=== PATIENT | female | born 1940 | race Caucasian/White ===

== ENCOUNTER 2021-09-24 21:20 | Inpatient (IN) | payer MEDICARE, SELFPAY ==
[2021-09-24 21:21] VITALS: BP 132/69; PULSE 90; RESP 20; TEMP 36.9; O2SAT 82; BMI 24.7
[2021-09-24 21:42] LABS: Influenza A, PCR Not Detected (NotDetected); Influenza B, PCR Not Detected (NotDetected)
[2021-09-24 21:48] VITALS: BMI 30.9
--- NOTE | 2021-09-24 21:48 | XR_ITS ---
PROCEDURE INFORMATION: Exam: XR Chest Exam date and time: 09/24/2021 9:48 PM Age: 81 years old Clinical indication: Shortness of breath; Additional info: SOA, covid + 3 wk ago TECHNIQUE: Imaging protocol: XR of the chest. Views: 2 views. COMPARISON: No relevant prior studies available. FINDINGS: Lungs: Diffuse interstitial prominence/coarsening. Patchy opacities are seen throughout the periphery of both lungs. Pleural spaces: Small bilateral pleural effusions. No pneumothorax. Heart/Mediastinum: Heart size appears to be within normal limits. Aortic atherosclerosis. Calcified right hilar lymph nodes. Bones/joints: Osteopenia. Scattered degenerative changes including multilevel spondylosis. IMPRESSION: Abnormal appearance of the lungs compatible with recent atypical pneumonia due to COVID-19. Unclear if findings represent residual active pneumonia or post-pneumonic sequelae. Follow-up is recommended.
--- NOTE | 2021-09-24 21:48 | CT_ITS ---
PROCEDURE INFORMATION: Exam: CTA Chest With Contrast Exam date and time: 09/24/2021 9:48 PM Age: 81 years old Clinical indication: Shortness of breath; Additional info: tiffanie SPRINGER + 3 wk ago TECHNIQUE: Imaging protocol: Computed tomographic angiography of the chest with contrast. 3D rendering (Not supervised by radiologist): MIP and/or 3D reconstructed images were created by the technologist. Radiation optimization: All CT scans at this facility use at least one of these dose optimization techniques: automated exposure control; mA and/or kV adjustment per patient size (includes targeted exams where dose is matched to clinical indication); or iterative reconstruction. Contrast material: ISOVUE 370; Contrast volume: 70 ml; Contrast route: INTRAVENOUS (IV); COMPARISON: CR XR CHEST 2V 09/24/2021 9:49 PM FINDINGS: Pulmonary arteries: Normal. No pulmonary emboli. Aorta: Normal caliber of the thoracic aorta. No thoracic aortic dissection. Scattered atherosclerotic plaque. Lungs: There are patchy ground-glass opacities throughout both lungs, predominantly peripheral in location. There is diffuse bronchial wall thickening. Scattered calcified granulomas. Pleural spaces: Minimal right pleural effusion. No pneumothorax. Heart: Heart size upper limits of normal. No pericardial effusion. Moderate coronary calcification, not formally quantified. Possible coronary stent(s). Lymph nodes: Calcified lymph nodes compatible with old granulomatous disease. There are also scattered mildly enlarged lymph nodes in the prevascular and aortopulmonary window stations that are nonspecific, possibly reactive to the atypical pneumonia. Mediastinum: Large hiatal hernia with inverted intrathoracic stomach. Nonspecific distal esophageal wall thickening, which may represent esophagitis, but is not fully evaluated at CT. Upper abdomen: Calcified granulomas in the liver and spleen. Bones/joints: Osteopenia. Levoconvex curvature of the thoracolumbar junction. Multilevel spondylosis. Soft tissues: Unremarkable. IMPRESSION: 1. No evidence of pulmonary embolus. 2. Extensive ground-glass opacities throughout both lungs compatible with recent diagnosis of atypical pneumonia. Findings could represent persistent active disease or residual sequela of recent infection, depending upon the clinical context, and follow-up is advised. 3. Old granulomas disease. 4. Large hiatal hernia with possible distal esophagitis.
[2021-09-24 21:59] LABS: Basophils # 0.1 K/mm3 (0-0.2); Eosinophils % 0.2 % (0.1-12.0); Hematocrit 38.4 % (37.0-47.0); Hemoglobin 12.3 g/dL (12.2-16.2); Lymphocytes # 0.7 K/mm3 (0.7-4.5); Lymphocytes % 9.8 % (10-50); Mean Corpuscular HGB Conc 32.1 g/dL (31.8-35.4); Mean Corpuscular Hemoglobin 28.8 pg (27.0-31.2); Mean Corpuscular Volume 89.7 fl (81-99); Mean Platelet Volume 7.6 fl (7.4-10.4); Monocytes # 0.5 K/mm3 (0.1-1.0); Monocytes % 7.4 % (1.7-9.3); Neutrophils # 5.8 K/mm3 (1.8-7.8); Neutrophils % 81.5 % (37.0-80.0); Platelet Count 481 K/mm3 (142-424); Red Blood Count 4.27 M/mm3 (4.20-5.40); Red Cell Distribution Width 15.2 % (11.5-17.5); White Blood Count 7.1 K/mm3 (4.8-10.8)
[2021-09-24 22:04] LABS: Alanine Aminotransferase 28 U/L (12-78); Albumin Level 4.2 g/dl (3.5-5.0); Albumin/Globulin Ratio 1.1 (1.1-1.8); Alkaline Phosphatase 72 U/L (38-126); Amylase 80 U/L (30-110); Anion Gap 12.1 mEq/L (5-15); Aspartate Amino Transferase 57 U/L (14-36); Bilirubin,Total 0.7 mg/dl (0.2-1.3); Blood Urea Nitrogen 14 mg/dl (7-17); Calcium 8.9 mg/dl (8.4-10.2); Carbon Dioxide 30 mmol/L (22.0-30.0); Chloride 97 mmol/L (98-107); Creatinine Clearance Estimated 57 mL/min (50-200); Estimated Glomerular Filt Rate 60 ml/min (>60); GFR (African American) 73 ML/MIN (>60); Globulin 3.9 g/dL (1.3-3.2); Glucose 125 mg/dl (74-100); Lipase 141 U/L (23-300); Potassium 5.1 mmoL/L (3.5-5.1); Sodium 134 mmol/L (136-145); Total Protein,Serum 8.1 g/dl (6.3-8.2)
[2021-09-24 22:09] LABS: C-Reactive Protein 98.3 mg/L (0-4)
--- NOTE | 2021-09-24 22:13 | ECG_ITS ---
APPROVED REPORT Exam: Resting ECG HR:83 bpm ECG Measurements Heart Rate 83 AXES VT 120 P 47 QRSd 80 QRS 34 QT 372 T 15 QTc 437 Conclusion Normal sinus rhythm Normal ECG Electronically signed by : Jason Benitez MD 09/25/2021 19:55:42
[2021-09-24 22:19] LABS: NT Pro Brain Natriuretic Pep. 309 pg/mL (0-450)
[2021-09-24 22:23] LABS: Procalcitonin 0.059 ng/mL (0.0-2.0)
[2021-09-24 22:30] VITALS: BP 148/90; PULSE 83; O2SAT 94
[2021-09-24 22:36] LABS: ABG Base Excess -1.4 mmol/L (-2.4-2.3); ABG HCO3 22.5 mmhg (22.0-26.0); ABG Oxygen Saturation 91 % (90-100); ABG PCO2 32.7 mmhg (35.0-45.0); ABG PH 7.46 mmol/L (7.35-7.45); ABG PO2 61.6 mmhg (80-100); ABG TCO2 23.5 mmhg (23-27)
[2021-09-24 22:36] LABS: Erythrocyte Sedimentation Rate > 140 mm/hr (0-30)
[2021-09-24 22:37] LABS: Allen's Test Acceptable; Oxygen 21 %
[2021-09-24 22:37] LABS: Troponin I < 0.01 ng/ml (0.00-0.034)
[2021-09-24 22:38] LABS: Source Right Radial
[2021-09-24 22:55] LABS: Coronavirus 19, PCR Detected (NotDetected)
[2021-09-25] VITALS (10 sets, daily range): BP systolic 134–142; BP diastolic 57–74; PULSE 57–100; RESP 16–20; TEMP 36.4–36.9; O2SAT 90–95; BMI 31.0
--- NOTE | 2021-09-25 00:10 | HMH.EDWEAK ---
ED Disposition Clinical Impression: COVID-19 virus infection Respiratory failure with hypoxia Qualifiers: Chronicity: acute Qualified Code(s): J96.01 - Acute respiratory failure with hypoxia Disposition: Admitted As Inpatient Condition on Discharge: Fair Referrals: Provider,Referral, [Primary Care Provider] - - Critical Care Critical Care Time: No Attestation: On 09/24/21, the high probability of a clinically significant, sudden or life threatening deterioration of the following system(s) required my full and direct attention, intervention and personal management. The time I documented below is in addition to time spent performing reported procedures but includes the following listed in this critical care notation. Medical Decision Making - Medical Records Medical records reviewed: Yes: I reviewed the patient's medical records. - Manpreet Inquiry Pt receiving controlled substance: No Vital Signs: 09/24/21 21:21 09/24/21 22:30 Temperature 98.5 F Temperature Source Oral Pulse Rate 83 Pulse Rate [Right] 90 Respiratory Rate 20 Blood Pressure 148/90 H Blood Pressure [Right Arm] 132/69 Blood Pressure Mean 120 Blood Pressure Mean [Right Arm] 90 02 Sat by Pulse Oximetry 82 L 94 L Oxygen Delivery Method Room Air Nasal Cannula Oxygen Flow Rate (LPM) 3 - Lab Data Lab results reviewed: Yes: I reviewed the patient's lab results. Lab Results 09/24/21 21:29: SARS-CoV-2 (PCR) Detected A, Influenza A Untype (PCR) Not detected, Influenza Type B (PCR) Not detected 09/24/21 21:46: WBC 7.1, RBC 4.27, Hgb 12.3, Hct 38.4, MCV 89.7, MCH 28.8, MCHC 32.1, RDW 15.2, Plt Count 481 H, MPV 7.6, Neut % (Auto) 81.5 H, Lymph % (Auto) 9.8 L, [place] % (Auto) 7.4, Eos % (Auto) 0.2, Baso % (Auto) 1.0, Neut # (Auto) 5.8, Lymph # (Auto) 0.7, [place] # (Auto) 0.5, Eos # (Auto) 0.0, Baso # (Auto) 0.1, ESR > 140 H 09/24/21 21:46: Sodium 134 L, Potassium 5.1, Chloride 97 L, Carbon Dioxide 30, Anion Gap 12.1, BUN 14, Creatinine 0.90, Estimated Creat Clear 57, Estimated GFR 60, Est GFR ( Amer) 73, Glucose 125 H, Calcium 8.9, Total Bilirubin 0.7, AST 57 H, ALT 28, Alkaline Phosphatase 72, Troponin I < 0.01, C-Reactive Protein 98.3 H, NT-Pro-B Natriuret Pep 309, Total Protein 8.1, Albumin 4.2, Globulin 3.9 H, Albumin/Globulin Ratio 1.1, Amylase 80, Procalcitonin 0.059 09/24/21 21:46: Lipase 141 09/24/21 22:27: Specimen Source Right radial, O2 % 21, ABG pH 7.46 H, ABG pCO2 32.7 L, ABG pO2 61.6 L, ABG HCO3 22.5, ABG Total CO2 23.5, ABG O2 Saturation 91, ABG Base Excess -1.4, Jeferson Test Acceptable Result diagrams: 09/24/21 21:46 09/24/21 21:46 Orders (Tests/Meds): ED MEDICATIONS Generic Name Dose Route Start Last Admin Trade Name Freq PRN Reason Stop Dose Admin Sodium Chloride 1,000 mls @ 999 mls/hr 09/24/21 23:15 09/24/21 23:11 Sod Chlor 0.9% 1000ml Bag IV 09/25/21 00:15 999 mls/hr .Q1H1M YANDEL Administration Discontinued Medications Generic Name Dose Route Start Last Admin Trade Name Freq PRN Reason Stop Dose Admin Dexamethasone Sodium Phosphate 10 mg 09/24/21 23:04 09/24/21 23:11 Dexamethasone 4mg/Ml 5ml Mdv IV 09/24/21 23:05 10 mg ONCE ONE Administration Iopamidol 70 ml 09/24/21 22:40 09/24/21 22:41 Iopamidol-370 (76%);100ml Bottle IV 09/24/21 22:41 70 ml ONCE ONE Administration Ketorolac Tromethamine 30 mg 09/24/21 23:10 09/24/21 23:11 Ketorolac 30mg/Ml Vial IV 09/24/21 23:11 30 mg ONCE ONE Administration Sodium Chloride 50 ml 09/24/21 22:40 09/24/21 22:41 0.9 % Sodium Chloride 50 Ml Vial IV 09/24/21 22:41 50 ml ONCE ONE Administration Sodium Chloride 10 ml 09/24/21 22:40 09/24/21 22:41 Sodium Chloride 0.9% 10ml Syr (Rad Only) IV 09/24/21 22:41 10 ml ONCE ONE Administration ORDERS Category Date Time Status Diarrhea 23 Panel, PCR Stat Lab 09/24/21 21:50 Ordered Troponin I Q3H Lab 09/25/21 01:00 Ordered Troponin I Q3H Lab 09/25/21 04:00 Or
--- NOTE | 2021-09-25 00:14 | PC.NURSE ---
Dr. Craig s/w Dr. Taylor (on-call for unassigned pts) for admission
--- NOTE | 2021-09-25 00:19 | PC.NURSE ---
uriel on phone with dr redding
--- NOTE | 2021-09-25 00:30 | PC.NURSE ---
Called warehouse specialist for bed assignment
[2021-09-25 01:00] LABS: Troponin I < 0.01 ng/ml (0.00-0.034)
--- NOTE | 2021-09-25 01:37 | PC.NURSE ---
s/w family and gave update on pt
[2021-09-25 06:59] LABS: Alanine Aminotransferase 24 U/L (12-78); Albumin Level 3.6 g/dl (3.5-5.0); Alkaline Phosphatase 59 U/L (38-126); Anion Gap 11.7 mEq/L (5-15); Aspartate Amino Transferase 46 U/L (14-36); Bilirubin,Total 0.5 mg/dl (0.2-1.3); Blood Urea Nitrogen 14 mg/dl (7-17); Calcium 8.3 mg/dl (8.4-10.2); Carbon Dioxide 26 mmol/L (22.0-30.0); Chloride 103 mmol/L (98-107); Creatinine Clearance Estimated 57 mL/min (50-200); Estimated Glomerular Filt Rate 69 ml/min (>60); GFR (African American) 84 ML/MIN (>60); Globulin 3.6 g/dL (1.3-3.2); Glucose 155 mg/dl (74-100); Magnesium 2.2 mg/dl (1.6-2.3); Potassium 5.7 mmoL/L (3.5-5.1); Sodium 135 mmol/L (136-145); Total Protein,Serum 7.2 g/dl (6.3-8.2)
--- NOTE | 2021-09-25 07:25 | HMH.PHAVTE ---
[facility] Pharmacy VTE Monitoring - Patient Demographics Admission date: 09/25/21 Report Date: 09/25/21 Time: 07:25 Allergies/Adverse Reactions: Patient Allergies No Known Allergies Allergy (Verified 09/24/21 21:48) Height: 1.6 m Weight: 79.379 kg Patient Problems: Current Active Problems COVID-19 virus infection (Acute) Respiratory failure with hypoxia (Acute) - VTE Risk Labs: VTE Related Lab Results Hgb 12.3 g/dL (12.2-16.2) 09/24/21 21:46 Hct 38.4 % (37.0-47.0) 09/24/21 21:46 Plt Count 481 K/mm3 (142-424) H 09/24/21 21:46 BUN 14 mg/dl (7-17) 09/24/21 21:46 Creatinine 0.90 mg/dl (0.52-1.04) 09/24/21 21:46 Estimated Creat Clear 57 mL/min (50-200) 09/24/21 21:46 VTE Risk Level: Low Risk - Prophylaxis VTE Prophylaxis Ordered?: Yes Types of VTE Prophylaxis: TEDS Knee High, Pharmacological Location of Applied Device: Bilateral Lower Extremeties Pharmacologic Type: Enoxaparin
[2021-09-25 07:32] LABS: Basophils # 0.1 K/mm3 (0-0.2); Basophils % 1.1 % (0.1-2.0); Hematocrit 34.9 % (37.0-47.0); Hemoglobin 11.1 g/dL (12.2-16.2); Lymphocytes # 0.7 K/mm3 (0.7-4.5); Lymphocytes % 13.4 % (10-50); Mean Corpuscular HGB Conc 31.7 g/dL (31.8-35.4); Mean Corpuscular Hemoglobin 28.7 pg (27.0-31.2); Mean Corpuscular Volume 90.5 fl (81-99); Mean Platelet Volume 9.3 fl (7.4-10.4); Monocytes # 0.1 K/mm3 (0.1-1.0); Monocytes % 2.6 % (1.7-9.3); Neutrophils # 4.3 K/mm3 (1.8-7.8); Neutrophils % 82.9 % (37.0-80.0); Platelet Count 469 K/mm3 (142-424); Red Blood Count 3.85 M/mm3 (4.20-5.40); Red Cell Distribution Width 15.2 % (11.5-17.5); White Blood Count 5.2 K/mm3 (4.8-10.8)
--- NOTE | 2021-09-25 08:21 | HMH.HP ---
*Admission Date: 09/25/21 *Chief complaint: shortness of breath, covid-19 *History of present illness: Ms. Gramajo is a pleasant 81-year-old female with history of hypertension, but otherwise relatively healthy who is unvaccinated for COVID-19. She presented to the ER yesterday due to worsening shortness of breath. Has been having symptoms off and on for about 2 weeks. Reportedly tested positive for COVID 2 weeks ago and since has had persistent cough, shortness of breath, fatigue. Fever at home with body aches and decreased appetite. No diarrhea, vomiting, chest pain, confusion. On evaluation in the ER found to be hypoxic with saturations in the low 80s. Started on supplemental oxygen. Medicine called for admission and further management. On evaluation this morning, she states she is feeling better on 3 L nasal cannula oxygen. Tolerating breakfast. Initiated on COVID protocol overnight with remdesivir and steroids. . Denies productive cough, chest pain, nausea or vomiting. [facility] History I have reviewed the patient's past medical history: Yes Medical History: Reports:: Hypertension *Have you ever received a pneumonia vaccine?: No *Have you received a flu vaccine this season?: Yes - *Social History Smoking Status: Unknown if ever smoked Alcohol Intake: never *Occupational Status:: retired Household Members: family *Travel in the last 8 weeks: None Family Hx:: No significant family history Review of Systems - Review of Systems Review of systems:: pertinent systems reviewed and negative unless documented below (14 point review of systems performed, pertinent positives and negatives as per HPI) - *Neurologic Reports weakness, Denies headache(s), Denies seizure-like activity Meds Home Medications Medication Instructions Recorded Confirmed Type Albuterol Sulfate [Proventil-HFA 2 puffs IH QIDP PRN 09/24/21 09/25/21 History 90mcg/puff Inh] Ascorbic Acid/Ascorbate Sodium 500 mg PO DAILY 09/24/21 09/24/21 History [Vitamin C 500 mg Tablet Chew] Calc/D3/Magnes/B6/Zn/Cu/Petr 1 each PO DAILY 09/24/21 09/24/21 History [[facility] Cit-D3-Mag 250 mg Cplt] Cyanocobalamin (Vitamin B-12) 2,500 mcg PO DAILY 09/24/21 09/24/21 History [Vitamin B12 5mg Tab] Oxycodone HCl/Acetaminophen 0.5 - 1 tab PO TIDP PRN 09/24/21 09/25/21 History [Percocet 5/325mg tablet] Pravastatin Sodium [Pravachol 40mg 40 mg PO HS 09/24/21 09/24/21 History Tablet] Promethazine/Dextromethorphan 2.5 - 5 ml PO Q6HP PRN 09/24/21 09/25/21 History [Promethazine-Dm Syrup] Vitamin E 400 unit PO DAILY 09/24/21 09/24/21 History lisinopriL [Lisinopril 30mg Tablet] 15 mg PO DAILY 09/24/21 09/25/21 History ALPRAZolam [Xanax 0.5mg tab] 0.5 mg PO HS 09/25/21 09/25/21 History Benzonatate [Benzonatate 100mg 100 mg PO TIDP PRN 09/25/21 09/25/21 History cap] Omeprazole [Omeprazole 20mg 20 mg PO BID 09/25/21 09/25/21 History Capsule] Ondansetron [Ondansetron Odt 8mg 8 mg PO BID PRN 09/25/21 09/25/21 History Tab] estradioL [Estrace] 1 g VG DIRECTED 09/25/21 09/25/21 History Allergies Allergy/AdvReac Type Severity Reaction Status Date / Time No Known Allergies Allergy Verified 09/24/21 21:48 Exam Vital signs and Labs for Last 24 Hours: Temp Pulse Resp BP Pulse Ox 98.5 F 60 20 134/72 94 L 09/25/21 01:59 09/25/21 04:00 09/25/21 01:59 09/25/21 01:59 09/24/21 22:30 Laboratory Results - last 24 hr 09/24/21 21:29: SARS-CoV-2 (PCR) Detected A, Influenza A Untype (PCR) Not detected, Influenza Type B (PCR) Not detected 09/24/21 21:46: WBC 7.1, RBC 4.27, Hgb 12.3, Hct 38.4, MCV 89.7, MCH 28.8, MCHC 32.1, RDW 15.2, Plt Count 481 H, MPV 7.6, Neut % (Auto) 81.5 H, Lymph % (Auto) 9.8 L, [place] % (Auto) 7.4, Eos % (Auto) 0.2, Baso % (Auto) 1.0, Neut # (Auto) 5.8, Lymph # (Auto) 0.7, [place] # (Auto) 0.5, Eos # (Auto) 0.0, Baso # (Auto) 0.1, ESR > 140 H 09/24/21 21:46: Sodium 134 L, Potassium 5.1, Chloride 97
--- NOTE | 2021-09-25 09:17 | HMH.PHAINT ---
USED LIST FROM DOCTORS OFFICE TO VERIFY HOME MEDICATIONS
--- NOTE | 2021-09-25 18:26 | PC.NURSE ---
Pt has been pleasant this shift. Pt has required 3-6L NC this shift. Pt has been a standby assist to and from the bathroom. No other acute changes or complaints, will continue to monitor.
[2021-09-26] VITALS (14 sets, daily range): BP systolic 130–152; BP diastolic 53–73; PULSE 56–80; RESP 16–18; TEMP 36.6–36.9; O2SAT 90–95; BMI 31.4
[2021-09-26 07:02] LABS: MANUAL DIFFERENTIAL MANUAL DIFFERENTIAL (MANUAL DIFF)
[2021-09-26 07:22] LABS: Alanine Aminotransferase 22 U/L (12-78); Albumin Level 3.2 g/dl (3.5-5.0); Alkaline Phosphatase 47 U/L (38-126); Anion Gap 8.8 mEq/L (5-15); Aspartate Amino Transferase 38 U/L (14-36); Bilirubin,Total 0.3 mg/dl (0.2-1.3); Blood Urea Nitrogen 18 mg/dl (7-17); Calcium 8.2 mg/dl (8.4-10.2); Carbon Dioxide 22 mmol/L (22.0-30.0); Chloride 110 mmol/L (98-107); Creatinine Clearance Estimated 58 mL/min (50-200); Estimated Glomerular Filt Rate 81 ml/min (>60); GFR (African American) 98 ML/MIN (>60); Globulin 3.2 g/dL (1.3-3.2); Glucose 132 mg/dl (74-100); Potassium 4.8 mmoL/L (3.5-5.1); Sodium 136 mmol/L (136-145); Total Protein,Serum 6.4 g/dl (6.3-8.2)
--- NOTE | 2021-09-26 07:33 | SW/DCPLANNER ---
Addendum entered by Deb Cueva 10/03/21 08:03: PATIENT REMAINS ON VAPOTHERM IN HOPES TO START THE WEANING PROCESS..IF PATIENT IS ABLE TO WEAN, SHE MAY NEED REHAB WILL EVALUATE TIME GETS CLOSER.. Addendum entered by Deb Cueva 09/28/21 13:01: PATIENT REMAINS IN THE ACUTE [facility].. DR BARFIELD REQUESTED PATIENT TO USE VAPOTHERM BUT SHE PREFERS [id number].. THE PLAN IS FOR PATIENT TO DISCHARGE BACK TO HER HOME IF ABLE TO DO SO.. WILL SEE HOW PATIENT DOES OVER THE WEEKEND AND WORK ON A DISCHARGE PLAN PATIENT GETS CLOSE TO READY FOR DISCHARGE.. Original Note: PATIENT ADMITTED TO [facility] ON 09/25/21 WITH COVID PNEUMONIA, PATIENT RESIDES AT HOME AND HAS A GRANDDAUGHTER LISTED HER NEXT OF KIN.. SHE IS KNEW TO THIS HOSPITAL. PATIENT RESIDES IN [facility] AND THE PLAN AT THIS TIME PENDING SHE CAN DO SO IS TO RETURN BACK HOME.. WILL FOLLOW PATIENT THROUGH HER ACUTE CARE STAY AND ASSIST WITH ANY HOME CARE THAT IS NECESSARY AT TIME OF DISPOSITION..
[2021-09-26 08:32] LABS: Basophils % 0.2 % (0.1-2.0); Hematocrit 30.5 % (37.0-47.0); Hemoglobin 9.7 g/dL (12.2-16.2); Lymphocytes % 9.9 % (10-50); Mean Corpuscular HGB Conc 31.8 g/dL (31.8-35.4); Mean Corpuscular Hemoglobin 28.5 pg (27.0-31.2); Mean Corpuscular Volume 89.4 fl (81-99); Mean Platelet Volume 9.8 fl (7.4-10.4); Monocytes # 0.6 K/mm3 (0.1-1.0); Monocytes % 5.8 % (1.7-9.3); Neutrophils # 8.2 K/mm3 (1.8-7.8); Neutrophils % 84.1 % (37.0-80.0); Platelet Count 512 K/mm3 (142-424); Red Blood Count 3.41 M/mm3 (4.20-5.40); White Blood Count 9.7 K/mm3 (4.8-10.8)
--- NOTE | 2021-09-26 09:09 | HMH.ACPN2 ---
Internal Medicine - PN: Subj *Date: 09/26/21 *Time: 09:09 Interval history: Patient overnight transition to Ventimask at 15 L, is comfortable, but notes that she coughed up a little bit of blood yesterday. Otherwise feels like her chest is somewhat congested. No fevers. Feels like her hiatal hernia pain is somewhat uncomfortable. Exam Vital signs and Labs for Last 24 Hours: Temp Pulse Resp BP Pulse Ox 98.4 F 67 18 144/73 H 92 L 09/26/21 07:53 09/26/21 07:53 09/26/21 07:53 09/26/21 07:53 09/26/21 07:54 Laboratory Results - last 24 hr 09/26/21 06:51: Sodium 136, Potassium 4.8, Chloride 110 H, Carbon Dioxide 22, Anion Gap 8.8, BUN 18 H D, Creatinine 0.70, Estimated Creat Clear 58, Estimated GFR 81, Est GFR ( Amer) 98, Glucose 132 H, Calcium 8.2 L, Total Bilirubin 0.3, AST 38 H, ALT 22, Alkaline Phosphatase 47, Total Protein 6.4, Albumin 3.2 L D, Globulin 3.2, Albumin/Globulin Ratio 1.0 L 09/26/21 06:51: WBC 9.7 D, RBC 3.41 L, Hgb 9.7 L, Hct 30.5 L, MCV 89.4, MCH 28.5, MCHC 31.8, RDW 15.0, Plt Count 512 H, MPV 9.8, Neut % (Auto) 84.1 H, Lymph % (Auto) 9.9 L, [place] % (Auto) 5.8, Eos % (Auto) 0.0 L, Baso % (Auto) 0.2, Neut # (Auto) 8.2 H, Lymph # (Auto) 1.0, [place] # (Auto) 0.6, Eos # (Auto) 0.0, Baso # (Auto) 0.0 I & O for Last 24 hours: Intake & Output 09/23/21 09/24/21 09/25/21 09/26/21 11:59 11:59 11:59 11:59 Intake Total 120 / 120 240 / 240 Balance 120 / 120 240 / 240 Weight 175 lb 0.012 oz 177 lb 7.554 oz Narrative: Alert, pleasant. Talkative. Scattered rhonchi in the bases of her lungs, heart rate regular. Abdomen is slightly distended but nontender. No distal edema. Pleasant and talkative, neurologically intact, good distal pulses. No rash. Assessment and Plan (1) COVID-19 virus infection Status: Acute Category: Medical Code(s): U07.1 - COVID-19 (2) Respiratory failure with hypoxia Status: Acute Qualifiers: Chronicity: acute Qualified Code(s): J96.01 - Acute respiratory failure with hypoxia Category: Medical Code(s): J96.91 - Respiratory failure, unspecified with hypoxia (3) Pneumonia due to 2019 novel coronavirus Status: Acute Category: Medical Code(s): U07.1 - COVID-19; J12.82 - Pneumonia due to coronavirus disease 2019 - Assessment and plan all Dx Assessment and Plan for all problems:: Slightly worsened pulmonary status. Continue oxygen support. Start home lisinopril. Reviewed CTA without evidence of PE from admission. Consider redoing if hemoptysis continues. Continue Lovenox therapy. Continue currently accepted [facility] authorized medications for COVID-19.
[2021-09-26 10:00] LABS: Lymphocytes % 12 % (10-50); Monocytes % 2 % (2-9); Neutrophils % 86 % (42-76); Platelet Estimate Moderate Increase; RBC Morphology Normal; Total Cells Counted 100
--- NOTE | 2021-09-26 20:10 | PC.NURSE ---
A0X4, AMBULATES IN ROOM WITH STANDBY ASSIST. 50% VENTI MASK FOR O2 SUPPORT. NO ACUTE CHANGES THIS SHIFT.
[2021-09-27] VITALS (13 sets, daily range): BP systolic 134–151; BP diastolic 55–75; PULSE 48–95; RESP 14–22; TEMP 36.3–36.7; O2SAT 89–96
[2021-09-27 07:43] LABS: Basophils % 0.2 % (0.1-2.0); Eosinophils % 0.1 % (0.1-12.0); Hematocrit 28.9 % (37.0-47.0); Hemoglobin 9.1 g/dL (12.2-16.2); Lymphocytes # 0.8 K/mm3 (0.7-4.5); Lymphocytes % 8.9 % (10-50); Mean Corpuscular HGB Conc 31.6 g/dL (31.8-35.4); Mean Corpuscular Hemoglobin 28.7 pg (27.0-31.2); Mean Corpuscular Volume 91.1 fl (81-99); Mean Platelet Volume 9.6 fl (7.4-10.4); Monocytes # 0.6 K/mm3 (0.1-1.0); Monocytes % 6.4 % (1.7-9.3); Neutrophils # 7.8 K/mm3 (1.8-7.8); Neutrophils % 84.4 % (37.0-80.0); Platelet Count 512 K/mm3 (142-424); Red Blood Count 3.17 M/mm3 (4.20-5.40); Red Cell Distribution Width 15.3 % (11.5-17.5); White Blood Count 9.3 K/mm3 (4.8-10.8)
[2021-09-27 07:50] LABS: Alanine Aminotransferase 24 U/L (12-78); Albumin Level 3.2 g/dl (3.5-5.0); Alkaline Phosphatase 46 U/L (38-126); Anion Gap 8.4 mEq/L (5-15); Aspartate Amino Transferase 40 U/L (14-36); Bilirubin,Total 0.2 mg/dl (0.2-1.3); Blood Urea Nitrogen 19 mg/dl (7-17); Calcium 8.3 mg/dl (8.4-10.2); Carbon Dioxide 25 mmol/L (22.0-30.0); Chloride 110 mmol/L (98-107); Creatinine Clearance Estimated 58 mL/min (50-200); Estimated Glomerular Filt Rate 81 ml/min (>60); GFR (African American) 98 ML/MIN (>60); Globulin 3.1 g/dL (1.3-3.2); Glucose 106 mg/dl (74-100); Potassium 4.4 mmoL/L (3.5-5.1); Sodium 139 mmol/L (136-145); Total Protein,Serum 6.3 g/dl (6.3-8.2)
--- NOTE | 2021-09-27 08:30 | XR_ITS ---
FINAL REPORT CLINICAL HISTORY: f/u icu exam/ sob COMPARISON: 09/24/2021 FINDINGS: SINGLE VIEW CHEST The heart is normal in size. The mediastinum is unremarkable. There are worsening pulmonary opacities consistent with worsening pneumonia. There is no pneumothorax. IMPRESSION: Worsening pneumonia. Reviewed, Interpreted and Dictated by Augustine Sheppard III, MD Transcribed by Padmaja Cooley Authenticated by Augustine Sheppard III, MD on 09/27/2021 10:22:[address] [facility]
--- NOTE | 2021-09-27 08:32 | P.PN_ITS ---
Internal Medicine - PN: Subj *Date: 09/27/21 *Time: 08:32 Interval history: Patient feels somewhat better this morning. Has still required facemask supplementation with high flow at 15 L, but has not been attempted to be weaned overnight. She reports shortness of air when she gets up and goes to the bathroom, has a little bit of cough induced diarrhea but reports that her stools are not loose, she simply has to go very quickly when she coughs. She has been eating fairly well. Exam Vital signs and Labs for Last 24 Hours: Temp Pulse Resp BP Pulse Ox 97.6 F 51 L 18 134/55 L 96 09/27/21 04:00 09/27/21 06:20 09/27/21 04:00 09/27/21 04:00 09/27/21 06:20 Laboratory Results - last 24 hr 09/26/21 06:51: WBC 9.7 D, RBC 3.41 L, Hgb 9.7 L, Hct 30.5 L, MCV 89.4, MCH 28.5, MCHC 31.8, RDW 15.0, Plt Count 512 H, MPV 9.8, Neut % (Auto) 84.1 H, Lymph % (Auto) 9.9 L, [place] % (Auto) 5.8, Eos % (Auto) 0.0 L, Baso % (Auto) 0.2, Neut # (Auto) 8.2 H, Lymph # (Auto) 1.0, [place] # (Auto) 0.6, Eos # (Auto) 0.0, Baso # (Auto) 0.0, Total Counted 100, Neutrophils % (Manual) 86 H, Lymphocytes % (Manual) 12, Monocytes % (Manual) 2, Platelet Estimate Moderate increase, RBC Morphology Normal 09/27/21 06:25: Sodium 139, Potassium 4.4, Chloride 110 H, Carbon Dioxide 25, Anion Gap 8.4, BUN 19 H, Creatinine 0.70, Estimated Creat Clear 58, Estimated GFR 81, Est GFR ( Amer) 98, Glucose 106 H, Calcium 8.3 L, Total Bilirubin 0.2, AST 40 H, ALT 24, Alkaline Phosphatase 46, Total Protein 6.3, Albumin 3.2 L , Globulin 3.1, Albumin/Globulin Ratio 1.0 L 09/27/21 06:25: WBC 9.3, RBC 3.17 L, Hgb 9.1 L, Hct 28.9 L, MCV 91.1, MCH 28.7, MCHC 31.6 L, RDW 15.3, Plt Count 512 H, MPV 9.6, Neut % (Auto) 84.4 H, Lymph % (Auto) 8.9 L, [place] % (Auto) 6.4, Eos % (Auto) 0.1, Baso % (Auto) 0.2, Neut # (Auto) 7.8, Lymph # (Auto) 0.8, [place] # (Auto) 0.6, Eos # (Auto) 0.0, Baso # (Auto) 0.0 I & O for Last 24 hours: Intake & Output 09/24/21 09/25/21 09/26/21 09/27/21 11:59 11:59 11:59 11:59 Intake Total 120 / 120 240 / 240 360 / 360 Output Total 250 / 250 Balance 120 / 120 240 / 240 110 / 110 Weight 175 lb 0.012 oz 177 lb 7.554 oz 177 lb 7.554 oz Microbiology Reports for the Last 24 Hours: Microbiology 09/26/21 11:35 Sputum - Expectorated Sputum Gram Stain - Final Narrative: Patient is alert, pleasant. Breathing easily. Scattered rhonchi, heart rate regular. Abdomen soft and nontender. No edema or clubbing. Neurologically intact. Assessment and Plan (1) COVID-19 virus infection Status: Acute Category: Medical Code(s): U07.1 - COVID-19 (2) Respiratory failure with hypoxia Status: Acute Qualifiers: Chronicity: acute Qualified Code(s): J96.01 - Acute respiratory failure with hypoxia Category: Medical Code(s): J96.91 - Respiratory failure, unspecified with hypoxia (3) Pneumonia due to 2019 novel coronavirus Status: Acute Category: Medical Code(s): U07.1 - COVID-19; J12.82 - Pneumonia due to coronavirus disease 2019 - Assessment and plan all Dx Assessment and Plan for all problems:: Stable, try to wean oxygen today. Check x-ray to see if worsening pneumonic infiltrates are occurring or possible fluid overload. Patient's hemoglobin has gone down, I think this is delusional/disease stress. Check CBC and electrolytes tomorrow
[2021-09-28] VITALS (10 sets, daily range): BP systolic 136–181; BP diastolic 54–77; PULSE 58–103; RESP 14–24; TEMP 36.6–37.1; O2SAT 84–96
--- NOTE | 2021-09-28 06:41 | HMH.ACPN2 ---
Internal Medicine - PN: Subj *Date: 09/28/21 *Time: 08:28 Interval history: I feel like I was going to last night . She had worsening respiratory distress overnight. On a nonrebreather this morning on exam. Denies chest pain, nausea or vomiting. Having some loose stools and shortness of breath. Complaining of dry mouth this morning. Tolerating some p.o. intake. Otherwise alert and oriented on exam this morning Exam Vital signs and Labs for Last 24 Hours: Temp Pulse Resp BP Pulse Ox 98.8 F 101 H 24 181/77 H 90 L 09/28/21 04:00 09/28/21 06:20 09/28/21 04:00 09/28/21 04:00 09/28/21 06:20 Laboratory Results - last 24 hr 09/27/21 06:25: Sodium 139, Potassium 4.4, Chloride 110 H, Carbon Dioxide 25, Anion Gap 8.4, BUN 19 H, Creatinine 0.70, Estimated Creat Clear 58, Estimated GFR 81, Est GFR ( Amer) 98, Glucose 106 H, Calcium 8.3 L, Total Bilirubin 0.2, AST 40 H, ALT 24, Alkaline Phosphatase 46, Total Protein 6.3, Albumin 3.2 L, Globulin 3.1, Albumin/Globulin Ratio 1.0 L 09/27/21 06:25: WBC 9.3, RBC 3.17 L, Hgb 9.1 L, Hct 28.9 L, MCV 91.1, MCH 28.7, MCHC 31.6 L, RDW 15.3, Plt Count 512 H, MPV 9.6, Neut % (Auto) 84.4 H, Lymph % (Auto) 8.9 L, [place] % (Auto) 6.4, Eos % (Auto) 0.1, Baso % (Auto) 0.2, Neut # (Auto) 7.8, Lymph # (Auto) 0.8, [place] # (Auto) 0.6, Eos # (Auto) 0.0, Baso # (Auto) 0.0 I & O for Last 24 hours: Intake & Output 09/25/21 09/26/21 09/27/21 09/28/21 23:59 23:59 23:59 23:59 Intake Total 360 / 360 360 / 360 360 / 360 Output Total 250 / 250 Balance 360 / 360 110 / 110 360 / 360 Weight 79.379 kg 80.5 kg Microbiology Reports for the Last 24 Hours: Microbiology 09/26/21 11:35 Sputum - Expectorated Sputum Gram Stain - Final 09/26/21 11:35 Sputum - Expectorated Sputum Sputum Culture - Preliminary Gram Negative Rods Narrative: - Constitutional mild acute distress - *Routine HEENT Exam Head: Present: normocephalic Eye: Present: EOMI, PERRL ENT: Present: mucous membranes moist - *Routine Neck Exam Present: supple. Absent: lymphadenopathy - *Routine Respiratory Exam Present: good airmovement bilaterally, fine crackles in posterior lung [place]. - *Routine Cardiovascular Exam Present: RRR - *Routine Abdominal Exam Present: soft, normoactive bowel sounds. Absent: tenderness - *Routine Extremities Exam Absent: cyanosis, clubbing, edema - *Routine Skin Exam Present: warm. Absent: rash - *Routine Neurological Exam Present: alert, oriented X3 Assessment and Plan (1) COVID-19 virus infection Status: Acute Category: Medical Code(s): U07.1 - COVID-19 (2) Respiratory failure with hypoxia Status: Acute Qualifiers: Chronicity: acute Qualified Code(s): J96.01 - Acute respiratory failure with hypoxia Category: Medical Code(s): J96.91 - Respiratory failure, unspecified with hypoxia (3) Pneumonia due to 2019 novel coronavirus Status: Acute Category: Medical Code(s): U07.1 - COVID-19; J12.82 - Pneumonia due to coronavirus disease 2019 - Assessment and plan all Dx Assessment and Plan for all problems:: 81-year-old female with COVID-19 pneumonia and hypoxemic respiratory failure. Requiring increased oxygen requirement. Will transition to Vapotherm this morning. Goal saturation greater 90%. Initiated on COVID therapy per protocol including remdesivir, dexamethasone. -We will add baricitinib today given initiation of Vapotherm/high flow. -Has completed 4 days of 500 mg of azithromycin, will discontinue this. Will initiate cefepime for broad coverage given worsening respiratory status. -Lisinopril for hypertension, first dose this morning, monitor for response and adjust as needed over the coming days -Concern given worsening condition. Patient continues to require inpatient management. Prognosis guarded. Regular diet DNR
[2021-09-28 07:42] LABS: Basophils % 0.1 % (0.1-2.0); Hematocrit 31.3 % (37.0-47.0); Hemoglobin 9.8 g/dL (12.2-16.2); Lymphocytes # 0.9 K/mm3 (0.7-4.5); Mean Corpuscular HGB Conc 31.1 g/dL (31.8-35.4); Mean Corpuscular Hemoglobin 28.6 pg (27.0-31.2); Mean Corpuscular Volume 91.9 fl (81-99); Mean Platelet Volume 8.7 fl (7.4-10.4); Monocytes # 0.5 K/mm3 (0.1-1.0); Monocytes % 5.2 % (1.7-9.3); Neutrophils % 84.8 % (37.0-80.0); Platelet Count 533 K/mm3 (142-424); Red Blood Count 3.41 M/mm3 (4.20-5.40); Red Cell Distribution Width 15.2 % (11.5-17.5); White Blood Count 9.5 K/mm3 (4.8-10.8)
[2021-09-28 07:56] LABS: Alanine Aminotransferase 33 U/L (12-78); Albumin Level 3.1 g/dl (3.5-5.0); Alkaline Phosphatase 54 U/L (38-126); Anion Gap 10.9 mEq/L (5-15); Aspartate Amino Transferase 54 U/L (14-36); Bilirubin,Total 0.6 mg/dl (0.2-1.3); Blood Urea Nitrogen 15 mg/dl (7-17); Carbon Dioxide 22 mmol/L (22.0-30.0); Chloride 108 mmol/L (98-107); Creatinine Clearance Estimated 58 mL/min (50-200); Estimated Glomerular Filt Rate 81 ml/min (>60); GFR (African American) 98 ML/MIN (>60); Globulin 3.1 g/dL (1.3-3.2); Glucose 89 mg/dl (74-100); Potassium 3.9 mmoL/L (3.5-5.1); Sodium 137 mmol/L (136-145); Total Protein,Serum 6.2 g/dl (6.3-8.2)
--- NOTE | 2021-09-28 12:29 | PC.NURSE ---
At [address] Taylor about pt request to take off vapotherm and put partial nonrebreather mask back on. Patient educated twice by myself and respiratory therapists about use of vapotherm and why she needs to wear it. Dr. Taylor said to let patient wear partial nonrebreather mask during day and wear vapotherm during meals to ensure oxygenation. No PRN meds given due to fear of suppressing respiratory status.
[2021-09-29] VITALS (9 sets, daily range): BP systolic 121–139; BP diastolic 60–74; PULSE 50–101; RESP 16–24; TEMP 36.6–37; O2SAT 86–95; BMI 31.7
--- NOTE | 2021-09-29 06:28 | PC.NURSE ---
Pt is A/O x3. Pt rested on and off this shift. Pt remained up to the chair the whole shift. Wears the NRB on 15L with O2 sats >90%. Pt had no c/o of pain, or SOA this shift. Pt uses the BSC with standby assist.
[2021-09-29 09:10] LABS: MANUAL DIFFERENTIAL MANUAL DIFFERENTIAL (MANUAL DIFF)
--- NOTE | 2021-09-29 09:13 | HMH.ACPN2 ---
Internal Medicine - PN: Subj *Date: 09/29/21 *Time: 09:13 Interval history: Overall patient feels better, notes that the facemask is much more tolerable than the Vapotherm, states she is eating some breakfast. Feels bright and much more active today. Exam Vital signs and Labs for Last 24 Hours: Temp Pulse Resp BP Pulse Ox 98.6 F 90 22 138/63 91 L 09/29/21 08:00 09/29/21 08:00 09/29/21 08:00 09/29/21 08:00 09/29/21 08:00 I & O for Last 24 hours: Intake & Output 09/26/21 09/27/21 09/28/21 09/29/21 11:59 11:59 11:59 11:59 Intake Total 240 / 240 360 / 360 360 / 360 120 / 120 Output Total 250 / 250 700 / 700 Balance 240 / 240 110 / 110 360 / 360 -580 / -580 Weight 177 lb 7.554 oz 177 lb 7.554 oz 179 lb 0.246 oz Microbiology Reports for the Last 24 Hours: Microbiology 09/26/21 11:35 Sputum - Expectorated Sputum Gram Stain - Final 09/26/21 11:35 Sputum - Expectorated Sputum Sputum Culture - Final Enterobacter aerogenes Narrative: Scattered rhonchi bilaterally, heart rate regular. Abdomen soft, pleasant, talkative, no edema. Assessment and Plan (1) COVID-19 virus infection Status: Acute Category: Medical Code(s): U07.1 - COVID-19 (2) Respiratory failure with hypoxia Status: Acute Qualifiers: Chronicity: acute Qualified Code(s): J96.01 - Acute respiratory failure with hypoxia Category: Medical Code(s): J96.91 - Respiratory failure, unspecified with hypoxia (3) Pneumonia due to 2019 novel coronavirus Status: Acute Category: Medical Code(s): U07.1 - COVID-19; J12.82 - Pneumonia due to coronavirus disease 2019 - Assessment and plan all Dx Assessment and Plan for all problems:: Good improvement. Continue to try to wean oxygen therapy. Much better over the past 24 hours.
[2021-09-29 09:26] LABS: Basophils % 0.3 % (0.1-2.0); Hematocrit 31.4 % (37.0-47.0); Hemoglobin 10.1 g/dL (12.2-16.2); Lymphocytes # 0.7 K/mm3 (0.7-4.5); Lymphocytes % 6.1 % (10-50); Mean Corpuscular HGB Conc 32.2 g/dL (31.8-35.4); Mean Platelet Volume 8.9 fl (7.4-10.4); Monocytes # 0.5 K/mm3 (0.1-1.0); Monocytes % 4.4 % (1.7-9.3); Neutrophils # 10.8 K/mm3 (1.8-7.8); Neutrophils % 89.2 % (37.0-80.0); Platelet Count 545 K/mm3 (142-424); Red Blood Count 3.49 M/mm3 (4.20-5.40); Red Cell Distribution Width 15.3 % (11.5-17.5); White Blood Count 12.1 K/mm3 (4.8-10.8)
[2021-09-29 09:34] LABS: Chloride 108 mmol/L (98-107); Sodium 139 mmol/L (136-145)
[2021-09-29 09:35] LABS: Potassium 3.7 mmoL/L (3.5-5.1)
[2021-09-29 09:37] LABS: Alanine Aminotransferase 33 U/L (12-78); Albumin Level 3.3 g/dl (3.5-5.0); Albumin/Globulin Ratio 0.9 (1.1-1.8); Alkaline Phosphatase 50 U/L (38-126); Aspartate Amino Transferase 39 U/L (14-36); Bilirubin,Total 0.7 mg/dl (0.2-1.3); Blood Urea Nitrogen 17 mg/dl (7-17); Calcium 8.3 mg/dl (8.4-10.2); Creatinine Clearance Estimated 58 mL/min (50-200); Estimated Glomerular Filt Rate 81 ml/min (>60); GFR (African American) 98 ML/MIN (>60); Globulin 3.5 g/dL (1.3-3.2); Glucose 116 mg/dl (74-100); Total Protein,Serum 6.8 g/dl (6.3-8.2)
[2021-09-29 09:43] LABS: C-Reactive Protein 114.9 mg/L (0-4)
[2021-09-29 11:12] LABS: Erythrocyte Sedimentation Rate > 140 mm/hr (0-30)
[2021-09-29 12:14] LABS: Lymphocytes % 10 % (10-50); Monocytes % 5 % (2-9); Neutrophils % 85 % (42-76); Total Cells Counted 100
[2021-09-29 12:15] LABS: Platelet Estimate Moderate Increase; RBC Morphology Normal
[2021-09-29 14:38] LABS: Anion Gap 11.7 mEq/L (5-15); Carbon Dioxide 23 mmol/L (22.0-30.0)
--- NOTE | 2021-09-29 19:10 | PC.NURSE ---
Pt. up to chair most of shift. Pt. states she is feeling much better this shift. Vital signs have been stable. Pt. is without complaints at this time. Report given to Fatmata Chew RN.
[2021-09-30] VITALS (9 sets, daily range): BP systolic 110–152; BP diastolic 47–73; PULSE 60–92; RESP 20–26; TEMP 36.6–37.1; O2SAT 89–95
[2021-09-30 07:26] LABS: MANUAL DIFFERENTIAL MANUAL DIFFERENTIAL (MANUAL DIFF)
[2021-09-30 07:30] LABS: Basophils % 0.1 % (0.1-2.0); Hematocrit 29.9 % (37.0-47.0); Hemoglobin 9.5 g/dL (12.2-16.2); Lymphocytes # 0.8 K/mm3 (0.7-4.5); Lymphocytes % 6.7 % (10-50); Mean Corpuscular Hemoglobin 28.8 pg (27.0-31.2); Mean Platelet Volume 9.2 fl (7.4-10.4); Monocytes # 0.6 K/mm3 (0.1-1.0); Monocytes % 4.7 % (1.7-9.3); Neutrophils # 10.5 K/mm3 (1.8-7.8); Neutrophils % 88.5 % (37.0-80.0); Platelet Count 498 K/mm3 (142-424); Red Blood Count 3.32 M/mm3 (4.20-5.40); Red Cell Distribution Width 15.4 % (11.5-17.5); White Blood Count 11.8 K/mm3 (4.8-10.8)
[2021-09-30 07:44] LABS: Alanine Aminotransferase 26 U/L (12-78); Albumin Level 3.1 g/dl (3.5-5.0); Alkaline Phosphatase 48 U/L (38-126); Anion Gap 10.2 mEq/L (5-15); Aspartate Amino Transferase 30 U/L (14-36); Bilirubin,Total 0.6 mg/dl (0.2-1.3); Blood Urea Nitrogen 20 mg/dl (7-17); Calcium 8.5 mg/dl (8.4-10.2); Carbon Dioxide 23 mmol/L (22.0-30.0); Chloride 108 mmol/L (98-107); Creatinine Clearance Estimated 58 mL/min (50-200); Estimated Glomerular Filt Rate 96 ml/min (>60); GFR (African American) 117 ML/MIN (>60); Globulin 3.1 g/dL (1.3-3.2); Glucose 112 mg/dl (74-100); Potassium 4.2 mmoL/L (3.5-5.1); Sodium 137 mmol/L (136-145); Total Protein,Serum 6.2 g/dl (6.3-8.2)
--- NOTE | 2021-09-30 09:05 | P.PN_ITS ---
Internal Medicine - PN: Subj *Date: 09/30/21 *Time: 09:05 Interval history: Patient is pleasant, talkative, has been up and around to the bedside commode. No instability per her. She is weak. Continues to be on Ventimask at 15 L. Exam Vital signs and Labs for Last 24 Hours: Temp Pulse Resp BP Pulse Ox 98.1 F 72 20 152/73 H 95 09/30/21 04:00 09/30/21 04:00 09/30/21 04:00 09/30/21 04:00 09/30/21 04:00 Laboratory Results - last 24 hr 09/29/21 08:35: Sodium 139, Potassium 3.7, Chloride 108 H, Carbon Dioxide 23, Anion Gap 11.7, BUN 17, Creatinine 0.70, Estimated Creat Clear 58, Estimated GFR 81, Est GFR ( Amer) 98, Glucose 116 H, Calcium 8.3 L, Total Bilirubin 0.7, AST 39 H D, ALT 33, Alkaline Phosphatase 50, C-Reactive Protein 114.9 H, Total Protein 6.8, Albumin 3.3 L, Globulin 3.5 H, Albumin/Globulin Ratio 0.9 L 09/29/21 08:35: WBC 12.1 H D, RBC 3.49 L, Hgb 10.1 L, Hct 31.4 L, MCV 90.0, MCH 29.0, MCHC 32.2, RDW 15.3, Plt Count 545 H, MPV 8.9, Neut % (Auto) 89.2 H, Lymph % (Auto) 6.1 L, [place] % (Auto) 4.4, Eos % (Auto) 0.0 L, Baso % (Auto) 0.3, Neut # (Auto) 10.8 H, Lymph # (Auto) 0.7, [place] # (Auto) 0.5, Eos # (Auto) 0.0, Baso # (Auto) 0.0, Total Counted 100, Neutrophils % (Manual) 85 H, Lymphocytes % (Manual) 10, Monocytes % (Manual) 5, Platelet Estimate Moderate increase, RBC Morphology Normal 09/29/21 08:35: ESR > 140 H 09/30/21 06:43: Sodium 137, Potassium 4.2, Chloride 108 H, Carbon Dioxide 23, Anion Gap 10.2, BUN 20 H, Creatinine 0.60, Estimated Creat Clear 58, Estimated GFR 96, Est GFR ( Amer) 117, Glucose 112 H, Calcium 8.5, Total Bilirubin 0.6, AST 30, ALT 26, Alkaline Phosphatase 48, Total Protein 6.2 L, Albumin 3.1 L , Globulin 3.1, Albumin/Globulin Ratio 1.0 L 09/30/21 06:43: WBC 11.8 H, RBC 3.32 L, Hgb 9.5 L, Hct 29.9 L, MCV 90.0, MCH 28.8, MCHC 32.0, RDW 15.4, Plt Count 498 H, MPV 9.2, Neut % (Auto) 88.5 H, Lymph % (Auto) 6.7 L, [place] % (Auto) 4.7, Eos % (Auto) 0.0 L, Baso % (Auto) 0.1, Neut # (Auto) 10.5 H, Lymph # (Auto) 0.8, [place] # (Auto) 0.6, Eos # (Auto) 0.0, Baso # (Auto) 0.0 I & O for Last 24 hours: Intake & Output 09/27/21 09/28/21 09/29/21 09/30/21 11:59 11:59 11:59 11:59 Intake Total 360 / 360 360 / 360 120 / 120 600 / 600 Output Total 250 / 250 700 / 700 Balance 110 / 110 360 / 360 -580 / -580 600 / 600 Weight 177 lb 7.554 oz 179 lb 0.246 oz Narrative: Lungs have rhonchi, heart rate regular. Abdomen soft, good distal perfusion. Alert and pleasant. Assessment and Plan (1) COVID-19 virus infection Status: Acute Category: Medical Code(s): U07.1 - COVID-19 (2) Respiratory failure with hypoxia Status: Acute Qualifiers: Chronicity: acute Qualified Code(s): J96.01 - Acute respiratory failure with hypoxia Category: Medical Code(s): J96.91 - Respiratory failure, unspecified with hypoxia (3) Pneumonia due to 2019 novel coronavirus Status: Acute Category: Medical Code(s): U07.1 - COVID-19; J12.82 - Pneumonia due to coronavirus disease 2019 - Assessment and plan all Dx Assessment and Plan for all problems:: Stabilized/slight improvement. PT/OT evaluation. Continue to try to wean oxygen towards suitable device for home.
[2021-09-30 09:55] LABS: Lymphocytes % 7 % (10-50); Monocytes % 5 % (2-9); Neutrophils % 88 % (42-76); Platelet Estimate Slight Increase; RBC Morphology Normal; Total Cells Counted 100
[2021-10-01] VITALS (11 sets, daily range): BP systolic 116–156; BP diastolic 50–97; PULSE 69–95; RESP 16–18; TEMP 36.6–36.8; O2SAT 90–98
[2021-10-01 07:04] LABS: MANUAL DIFFERENTIAL MANUAL DIFFERENTIAL (MANUAL DIFF)
[2021-10-01 07:17] LABS: Basophils % 0.1 % (0.1-2.0); Hematocrit 29.8 % (37.0-47.0); Hemoglobin 9.3 g/dL (12.2-16.2); Lymphocytes # 0.9 K/mm3 (0.7-4.5); Lymphocytes % 7.5 % (10-50); Mean Corpuscular HGB Conc 31.2 g/dL (31.8-35.4); Mean Corpuscular Hemoglobin 28.4 pg (27.0-31.2); Mean Corpuscular Volume 90.9 fl (81-99); Mean Platelet Volume 9.2 fl (7.4-10.4); Monocytes # 0.7 K/mm3 (0.1-1.0); Monocytes % 5.8 % (1.7-9.3); Neutrophils # 10.4 K/mm3 (1.8-7.8); Neutrophils % 86.6 % (37.0-80.0); Platelet Count 506 K/mm3 (142-424); Red Blood Count 3.27 M/mm3 (4.20-5.40); Red Cell Distribution Width 15.3 % (11.5-17.5)
[2021-10-01 07:33] LABS: Alanine Aminotransferase 28 U/L (12-78); Albumin Level 3.2 g/dl (3.5-5.0); Alkaline Phosphatase 47 U/L (38-126); Anion Gap 10.1 mEq/L (5-15); Aspartate Amino Transferase 33 U/L (14-36); Bilirubin,Total 0.7 mg/dl (0.2-1.3); Blood Urea Nitrogen 22 mg/dl (7-17); Calcium 8.5 mg/dl (8.4-10.2); Carbon Dioxide 25 mmol/L (22.0-30.0); Chloride 106 mmol/L (98-107); Creatinine Clearance Estimated 58 mL/min (50-200); Estimated Glomerular Filt Rate 96 ml/min (>60); GFR (African American) 117 ML/MIN (>60); Globulin 3.3 g/dL (1.3-3.2); Glucose 103 mg/dl (74-100); Potassium 4.1 mmoL/L (3.5-5.1); Sodium 137 mmol/L (136-145); Total Protein,Serum 6.5 g/dl (6.3-8.2)
--- NOTE | 2021-10-01 08:38 | PC.NURSE ---
LATE ENTRY - Pt is on venturi mask 15L, 50%. O2 sats > 90% at rest. O2 drops to mid 80s when getting up to bedside commode. Pt recovers fairly quick. Voiding per BSC, with good urine output. Pt has sat up in chair this shift. Pt has had no complaints and has rested well. Call light in reach.
--- NOTE | 2021-10-01 08:59 | HMH.ACPN2 ---
Internal Medicine - PN: Subj *Date: 10/01/21 *Time: 08:59 Interval history: Overall patient is doing well, comfortable, in her chair. Continues to be on facemask oxygen as she prefers this from the cannula. Exam Vital signs and Labs for Last 24 Hours: Temp Pulse Resp BP Pulse Ox 98.1 F 93 H 18 132/59 L 93 L 10/01/21 08:00 10/01/21 08:00 10/01/21 08:00 10/01/21 08:00 10/01/21 08:00 Laboratory Results - last 24 hr 09/30/21 06:43: Total Counted 100, Neutrophils % (Manual) 88 H, Lymphocytes % (Manual) 7 L, Monocytes % (Manual) 5, Platelet Estimate Slight increase, RBC Morphology Normal 10/01/21 06:29: Sodium 137, Potassium 4.1, Chloride 106, Carbon Dioxide 25, Anion Gap 10.1, BUN 22 H, Creatinine 0.60, Estimated Creat Clear 58, Estimated GFR 96, Est GFR ( Amer) 117, Glucose 103 H, Calcium 8.5, Total Bilirubin 0.7, AST 33, ALT 28, Alkaline Phosphatase 47, Total Protein 6.5, Albumin 3.2 L, Globulin 3.3 H, Albumin/Globulin Ratio 1.0 L 10/01/21 06:29: WBC 12.0 H, RBC 3.27 L, Hgb 9.3 L, Hct 29.8 L, MCV 90.9, MCH 28.4, MCHC 31.2 L, RDW 15.3, Plt Count 506 H, MPV 9.2, Neut % (Auto) 86.6 H, Lymph % (Auto) 7.5 L, [place] % (Auto) 5.8, Eos % (Auto) 0.0 L, Baso % (Auto) 0.1, Neut # (Auto) 10.4 H, Lymph # (Auto) 0.9, [place] # (Auto) 0.7, Eos # (Auto) 0.0, Baso # (Auto) 0.0 I & O for Last 24 hours: Intake & Output 09/28/21 09/29/21 09/30/21 10/01/21 11:59 11:59 11:59 11:59 Intake Total 360 / 360 120 / 120 840 / 840 480 / 480 Output Total 700 / 700 Balance 360 / 360 -580 / -580 840 / 840 480 / 480 Weight 179 lb 0.246 oz Narrative: Pleasant, talkative, notes that she coughed up a little bit of blood. Has been up and around the room per nursing staff and eating well. Lungs have good air movement, some rhonchi, heart rate regular. Abdomen soft, no peripheral edema. Assessment and Plan (1) COVID-19 virus infection Status: Acute Category: Medical Code(s): U07.1 - COVID-19 (2) Respiratory failure with hypoxia Status: Acute Qualifiers: Chronicity: acute Qualified Code(s): J96.01 - Acute respiratory failure with hypoxia Category: Medical Code(s): J96.91 - Respiratory failure, unspecified with hypoxia (3) Pneumonia due to 2019 novel coronavirus Status: Acute Category: Medical Code(s): U07.1 - COVID-19; J12.82 - Pneumonia due to coronavirus disease 2019 - Assessment and plan all Dx Assessment and Plan for all problems:: Repeat chest x-ray secondary to hemoptysis. Overall she is improving, continue to wean oxygen, home with home health when oxygen levels are tenable for home use.
--- NOTE | 2021-10-01 09:02 | XR_ITS ---
FINAL REPORT CLINICAL HISTORY: f/u icu exam, covid COMPARISON: September 27, 2021 FINDINGS: SINGLE VIEW CHEST. The heart is mildly enlarged. The mediastinum is unremarkable. There are dense patchy bilateral airspace infiltrates which appear more evident than previous and consistent with progressive acute pneumonia. There is no pneumothorax. there is a large hiatal hernia. IMPRESSION: Dense patchy bilateral airspace infiltrates, more evident than prior and consistent with progressive acute pneumonia. Recommend continued follow-up. Reviewed, Interpreted and Dictated by Manuel Hernandez MD Transcribed by Joann Cardenas Authenticated by Manuel Hernandez MD on 10/01/2021 12:18:[address] [facility]
[2021-10-01 09:45] LABS: Lymphocytes % 10 % (10-50); Monocytes % 1 % (2-9); Neutrophils % 89 % (42-76); Total Cells Counted 100
[2021-10-01 09:46] LABS: Platelet Estimate Slight Increase; RBC Morphology Normal
--- NOTE | 2021-10-01 10:07 | DIET.NUTRFU ---
RD reviewed meal intake, she is showing a slight decline, only consuming <50% of most. Was receiving ensure daily, increased to TID to help meet nutritional needs. labs are WNL. Continues on medication regimen for COVID. She plans to discharge with granddaughter when appropriate.
--- NOTE | 2021-10-01 10:38 | HMH.OTEV ---
OT Inpatient Evaluation Rehab OT IP Evaluation Start: 09/30/21 08:48 Freq: ONCE Status: Complete Protocol: Document 10/01/21 10:31 AMAYA (Rec: 10/01/21 10:38 AMAYA [id number]) Rehab OT IP Assessment Subjective History Ms. Gramajo is a pleasant 81- year-old female with history of hypertension, but otherwise relatively healthy who is unvaccinated for COVID-19. She presented to the ER yesterday due to worsening shortness of breath. Has been having symptoms off and on for about 2 weeks. Reportedly tested positive for COVID 2 weeks ago and since has had persistent cough, shortness of breath, fatigue. Fever at home with body aches and decreased appetite. No diarrhea, vomiting, chest pain , confusion. On evaluation in the ER found to be hypoxic with saturations in the low 80s. Started on supplemental oxygen. Medicine called for admission and further management. On evaluation this morning, she states she is feeling better on 3 L nasal cannula oxygen. Tolerating breakfast. Initiated on COVID protocol overnight with remdesivir and steroids. . Denies productive cough, chest pain, nausea or vomiting. Patient lives in 1 story home with josefina. Patient was independent with ADLs prior to hospitalization. [place] assisted with housekeeping task, cooking and transportation if needed. Subjective Instructed Patient on ADL re- training task to complete SPT from recliner->BSC with no AE/ devices. Patient completed transfer Min A. No LOB. Patient completed clothing mgt
--- NOTE | 2021-10-01 10:55 | P.PN_ITS ---
Internal Medicine - PN: Subj *Date: 10/01/21 *Time: 10:55 Exam Vital signs and Labs for Last 24 Hours: Temp Pulse Resp BP Pulse Ox 98.1 F 89 18 132/59 L 90 L 10/01/21 08:00 10/01/21 09:15 10/01/21 08:00 10/01/21 08:00 10/01/21 09:15 Laboratory Results - last 24 hr 10/01/21 06:29: Sodium 137, Potassium 4.1, Chloride 106, Carbon Dioxide 25, Anion Gap 10.1, BUN 22 H, Creatinine 0.60, Estimated Creat Clear 58, Estimated GFR 96, Est GFR ( Amer) 117, Glucose 103 H, Calcium 8.5, Total Bilirubin 0.7, AST 33, ALT 28, Alkaline Phosphatase 47, Total Protein 6.5, Albumin 3.2 L, Globulin 3.3 H, Albumin/Globulin Ratio 1.0 L 10/01/21 06:29: WBC 12.0 H, RBC 3.27 L, Hgb 9.3 L, Hct 29.8 L, MCV 90.9, MCH 28.4, MCHC 31.2 L, RDW 15.3, Plt Count 506 H, MPV 9.2, Neut % (Auto) 86.6 H, Lymph % (Auto) 7.5 L, [place] % (Auto) 5.8, Eos % (Auto) 0.0 L, Baso % (Auto) 0.1, Neut # (Auto) 10.4 H, Lymph # (Auto) 0.9, [place] # (Auto) 0.7, Eos # (Auto) 0.0, Baso # (Auto) 0.0, Total Counted 100, Neutrophils % (Manual) 89 H, Lymphocytes % (Manual) 10, Monocytes % (Manual) 1 L, Platelet Estimate Slight increase, RBC Morphology Normal I & O for Last 24 hours: Intake & Output 09/28/21 09/29/21 09/30/21 10/01/21 23:59 23:59 23:59 23:59 Intake Total 720 / 720 720 / 720 340 / 340 Output Total 200 / 600 500 / 500 Balance -200 / -600 220 / 220 720 / 720 340 / 340 Weight 81.2 kg Assessment and Plan (1) COVID-19 virus infection Status: Acute Category: Medical Code(s): U07.1 - COVID-19 (2) Respiratory failure with hypoxia Status: Acute Qualifiers: Chronicity: acute Qualified Code(s): J96.01 - Acute respiratory failure with hypoxia Category: Medical Code(s): J96.91 - Respiratory failure, unspecified with hy poxia (3) Pneumonia due to 2019 novel coronavirus Status: Acute Category: Medical Code(s): U07.1 - COVID-19; J12.82 - Pneumonia due to coronavirus disease 2019 The patient's infection will respond to the chosen ABx?: Yes (SENSITIVE ENTEROBACTER IN SPUTUM) Is the patient receiving the right drug, dose, and route?: Yes Could a more targeted ABx be ordered?: No
--- NOTE | 2021-10-01 11:20 | HMH.PTEV ---
Physical Therapy Evaluation Rehab PT IP Evaluation Start: 09/30/21 08:48 Freq: ONCE Status: Active Protocol: Document 10/01/21 11:17 MARISELALISA (Rec: 10/01/21 11:20 MARISELALISA [id number]) Subjective/History History History Ms. Gramajo is a pleasant 81- year-old female with history of hypertension, but otherwise relatively healthy who is unvaccinated for COVID-19. She presented to the ER yesterday due to worsening shortness of breath. Has been having symptoms off and on for about 2 weeks. Reportedly tested positive for COVID 2 weeks ago and since has had persistent cough, shortness of breath, fatigue. Fever at home with body aches and decreased appetite. No diarrhea, vomiting, chest pain , confusion. On evaluation in the ER found to be hypoxic with saturations in the low 80s. copied from H&P Subjective Subjective Pt reports she has been getting up and using the bathroom and transferring by herself w/out assistance Rehab PT IP Eval Objective Appearance Patient Behavior Appropriate,Cooperative Patient Orientation Person,Place,Time,Year Difficulty following instructions none Speech Pattern Appropriate Ambulation Patient Able to Ambulate Yes Ambulation Observation IP General Gait Pattern Observation Shuffling Step Ambulation Distance (feet) 10 Ambulation Assistive Device None Ambulation Ability Supervision/Stand by Balance Ability to Arise Able, uses arms to help Sitting Balance Steady, safe Standing Balance Steady, wide stance Dynamic Sitting Balance Ability Good Dynamic Standing Balance Ability Fair Transfers Bed Transfer Ability Independent,Supervision/Stand by Chair Transfer Ability Independent,Supervision/Stand by Sit to Stand Bed Transfer Ability Independent,Supervision/Stand by Sit to Stand Chair Transfer Ability Independent,Supervision/Stand by Rehab PT IP prob,goals,plan Problems Date of Ev
[2021-10-02] VITALS (10 sets, daily range): BP systolic 131–153; BP diastolic 63–78; PULSE 60–101; RESP 19–20; TEMP 36.1–37.6; O2SAT 90–93; BMI 31.6
--- NOTE | 2021-10-02 06:49 | P.PN_ITS ---
Internal Medicine - PN: Subj *Date: 10/02/21 *Time: 07:26 Exam Vital signs and Labs for Last 24 Hours: Temp Pulse Resp BP Pulse Ox 97.2 F L 64 20 153/64 H 91 L 10/02/21 04:00 10/02/21 06:20 10/02/21 00:00 10/02/21 04:00 10/02/21 06:20 Laboratory Results - last 24 hr 10/01/21 06:29: Sodium 137, Potassium 4.1, Chloride 106, Carbon Dioxide 25, Anion Gap 10.1, BUN 22 H, Creatinine 0.60, Estimated Creat Clear 58, Estimated GFR 96, Est GFR ( Amer) 117, Glucose 103 H, Calcium 8.5, Total Bilirubin 0.7, AST 33, ALT 28, Alkaline Phosphatase 47, Total Protein 6.5, Albumin 3.2 L, Globulin 3.3 H, Albumin/Globulin Ratio 1.0 L 10/01/21 06:29: WBC 12.0 H, RBC 3.27 L, Hgb 9.3 L, Hct 29.8 L, MCV 90.9, MCH 28.4, MCHC 31.2 L, RDW 15.3, Plt Count 506 H, MPV 9.2, Neut % (Auto) 86.6 H, Lymph % (Auto) 7.5 L, [place] % (Auto) 5.8, Eos % (Auto) 0.0 L, Baso % (Auto) 0.1, Neut # (Auto) 10.4 H, Lymph # (Auto) 0.9, [place] # (Auto) 0.7, Eos # (Auto) 0.0, Baso # (Auto) 0.0, Total Counted 100, Neutrophils % (Manual) 89 H, Lymphocytes % (Manual) 10, Monocytes % (Manual) 1 L, Platelet Estimate Slight increase, RBC Morphology Normal I & O for Last 24 hours: Intake & Output 09/29/21 09/30/21 10/01/21 10/02/21 23:59 23:59 23:59 23:59 Intake Total 720 / 720 720 / 720 940 / 940 Output Total 500 / 500 500 / 500 Balance 220 / 220 720 / 720 440 / 440 Weight 81.2 kg Narrative: - Constitutional mild acute distress - *Routine HEENT Exam Head: Present: normocephalic Eye: Present: EOMI, PERRL ENT: Present: mucous membranes moist - *Routine Neck Exam Present: supple. Absent: lymphadenopathy - *Routine Respiratory Exam Present: good airmovement bilaterally, fine crackles in posterior lung [place]. - *Routine Cardiovascular Exam Present: RRR - *Routine Abdominal Exam Present: soft, normoactive bowel sounds. Absent: tenderness - *Routine Extremities Exam Absent: cyanosis, clubbing, edema - *Routine Skin Exam Present: warm. Absent: rash - *Routine Neurological Exam Present: alert, oriented X3 Assessment and Plan (1) COVID-19 virus infection Status: Acute Category: Medical Code(s): U07.1 - COVID-19 (2) Respiratory failure with hypoxia Status: Acute Qualifiers: Chronicity: acute Qualified Code(s): J96.01 - Acute respiratory failure with hypoxia Category: Medical Code(s): J96.91 - Respiratory failure, unspecified with hypoxia (3) Pneumonia due to 2019 novel coronavirus Status: Acute Category: Medical Code(s): U07.1 - COVID-19; J12.82 - Pneumonia due to coronavirus disease 2019 - Assessment and plan all Dx Assessment and Plan for all problems:: 81-year-old female with COVID-19 pneumonia and hypoxemic respiratory failure. Requiring increased oxygen requirement. Continue Venti-mask. Stable oxygen. Goal saturation greater 90%. Initiated on COVID therapy per protocol including remdesivir, dexamethasone. -Continue cefepime for broad coverage of pneumonia. -Lisinopril for hypertension, tolerating well, improved control - Patient continues to require inpatient management. Prognosis guarded. Regular diet DNR
[2021-10-02 08:01] LABS: Alanine Aminotransferase 29 U/L (12-78); Albumin Level 3.2 g/dl (3.5-5.0); Albumin/Globulin Ratio 0.9 (1.1-1.8); Alkaline Phosphatase 50 U/L (38-126); Anion Gap 10.3 mEq/L (5-15); Aspartate Amino Transferase 34 U/L (14-36); Bilirubin,Total 0.7 mg/dl (0.2-1.3); Blood Urea Nitrogen 27 mg/dl (7-17); Calcium 8.7 mg/dl (8.4-10.2); Carbon Dioxide 26 mmol/L (22.0-30.0); Chloride 108 mmol/L (98-107); Creatinine Clearance Estimated 58 mL/min (50-200); Estimated Glomerular Filt Rate 96 ml/min (>60); GFR (African American) 117 ML/MIN (>60); Globulin 3.4 g/dL (1.3-3.2); Glucose 104 mg/dl (74-100); Potassium 4.3 mmoL/L (3.5-5.1); Sodium 140 mmol/L (136-145); Total Protein,Serum 6.6 g/dl (6.3-8.2)
[2021-10-03] VITALS (14 sets, daily range): BP systolic 125–142; BP diastolic 57–78; PULSE 50–88; RESP 16–22; TEMP 36.4–36.8; O2SAT 89–93; BMI 24.3
--- NOTE | 2021-10-03 07:01 | PC.NURSE ---
Pt rested fair during the night. She is tolerating venti mask with sats 89-93%, diminished lung sounds noted. Call light within reach.
[2021-10-03 07:37] LABS: Alanine Aminotransferase 28 U/L (12-78); Albumin Level 3.1 g/dl (3.5-5.0); Alkaline Phosphatase 47 U/L (38-126); Anion Gap 7.4 mEq/L (5-15); Aspartate Amino Transferase 32 U/L (14-36); Bilirubin,Total 0.6 mg/dl (0.2-1.3); Blood Urea Nitrogen 28 mg/dl (7-17); Calcium 8.5 mg/dl (8.4-10.2); Carbon Dioxide 27 mmol/L (22.0-30.0); Chloride 108 mmol/L (98-107); Creatinine Clearance Estimated 45 mL/min (50-200); Estimated Glomerular Filt Rate 96 ml/min (>60); GFR (African American) 117 ML/MIN (>60); Globulin 3.2 g/dL (1.3-3.2); Glucose 115 mg/dl (74-100); Potassium 4.4 mmoL/L (3.5-5.1); Sodium 138 mmol/L (136-145); Total Protein,Serum 6.3 g/dl (6.3-8.2)
--- NOTE | 2021-10-03 08:34 | HMH.ACPN2 ---
Internal Medicine - PN: Subj *Date: 10/03/21 *Time: 08:34 Interval history: Patient is pleasant, talkative, bright, cheerful and delightful to interact with today. Exam Vital signs and Labs for Last 24 Hours: Temp Pulse Resp BP Pulse Ox 97.6 F 79 18 125/60 93 L 10/03/21 07:58 10/03/21 07:58 10/03/21 07:58 10/03/21 07:58 10/03/21 07:58 Laboratory Results - last 24 hr 10/03/21 06:58: Sodium 138, Potassium 4.4, Chloride 108 H, Carbon Dioxide 27, Anion Gap 7.4, BUN 28 H, Creatinine 0.60, Estimated Creat Clear 45, Estimated GFR 96, Est GFR ( Amer) 117, Glucose 115 H, Calcium 8.5, Total Bilirubin 0.6, AST 32, ALT 28, Alkaline Phosphatase 47, Total Protein 6.3, Albumin 3.1 L, Globulin 3.2, Albumin/Globulin Ratio 1.0 L I & O for Last 24 hours: Intake & Output 09/30/21 10/01/21 10/02/21 10/03/21 11:59 11:59 11:59 11:59 Intake Total 840 / 840 820 / 820 600 / 600 640 / 640 Output Total 500 / 500 701 / 701 Balance 840 / 840 820 / 820 100 / 100 -61 / -61 Weight 178 lb 9.191 oz 137 lb 8 oz Narrative: Lungs with good air movement. Heart rate regular. Abdomen soft, oropharynx clear. No JVD noted. No edema noted. Assessment and Plan (1) COVID-19 virus infection Status: Acute Category: Medical Code(s): U07.1 - COVID-19 (2) Respiratory failure with hypoxia Status: Acute Qualifiers: Chronicity: acute Qualified Code(s): J96.01 - Acute respiratory failure with hypoxia Category: Medical Code(s): J96.91 - Respiratory failure, unspecified with hypoxia (3) Pneumonia due to 2019 novel coronavirus Status: Acute Category: Medical Code(s): U07.1 - COVID-19; J12.82 - Pneumonia due to coronavirus disease 2019 - Assessment and plan all Dx Assessment and Plan for all problems:: Continue weaning oxygen. Discharge home when appropriate level. No other management plans today.
--- NOTE | 2021-10-03 18:43 | PC.NURSE ---
patient has done very well this shift. has been weaned down to 3l nasal cannula and is very eager to go home soon. no complaints. is independent in room. rings out as needed. vitals have been stable. appetite is okay if she doesnt eat has been at least drinking an ensure.
[2021-10-04] VITALS (7 sets, daily range): BP systolic 113–140; BP diastolic 43–69; PULSE 60–80; RESP 18–22; TEMP 36.4–36.8; O2SAT 85–93; BMI 30.9
--- NOTE | 2021-10-04 05:18 | PC.NURSE ---
Addendum entered by Johnny Og RN 10/04/21 05:54: IS best of 750 this shift. Original Note: No acute changes. Unable to wean O2 further, pt dropped to 84% on RA and 88% on 2LNC. Pt remains eager to go home. Independent to BSC and voiding clear, yellow urine. BM this shift. Pt uses call diane when assistance is needed.
[2021-10-04 07:37] LABS: Alanine Aminotransferase 27 U/L (12-78); Albumin Level 3.2 g/dl (3.5-5.0); Alkaline Phosphatase 50 U/L (38-126); Anion Gap 8.1 mEq/L (5-15); Aspartate Amino Transferase 29 U/L (14-36); Bilirubin,Total 0.6 mg/dl (0.2-1.3); Blood Urea Nitrogen 28 mg/dl (7-17); Calcium 8.3 mg/dl (8.4-10.2); Carbon Dioxide 27 mmol/L (22.0-30.0); Chloride 107 mmol/L (98-107); Creatinine Clearance Estimated 57 mL/min (50-200); Estimated Glomerular Filt Rate 96 ml/min (>60); GFR (African American) 117 ML/MIN (>60); Globulin 3.1 g/dL (1.3-3.2); Glucose 80 mg/dl (74-100); Potassium 4.1 mmoL/L (3.5-5.1); Sodium 138 mmol/L (136-145); Total Protein,Serum 6.3 g/dl (6.3-8.2)
--- NOTE | 2021-10-04 08:40 | HMH.DCSUM ---
General - General Admission date:: 09/25/21 Discharge date: 10/04/21 HPI HPI: Ms. Gramajo is a pleasant 81-year-old female with history of hypertension, but otherwise relatively healthy who is unvaccinated for COVID-19. She presented to the ER yesterday due to worsening shortness of breath. Has been having symptoms off and on for about 2 weeks. Reportedly tested positive for COVID 2 weeks ago and since has had persistent cough, shortness of breath, fatigue. Fever at home with body aches and decreased appetite. No diarrhea, vomiting, chest pain, confusion. On evaluation in the ER found to be hypoxic with saturations in the low 80s. Started on supplemental oxygen. Medicine called for admission and further management. On evaluation this morning, she states she is feeling better on 3 L nasal cannula oxygen. Tolerating breakfast. Initiated on COVID protocol overnight with remdesivir and steroids. . Denies productive cough, chest pain, nausea or vomiting. Hospital Course Hospital Course: Patient was admitted. Did well initially but did have worsening oxygen requirements throughout the rest of her hospital stay and ended up on facemask at 50% Ventimask. This was continued, she did not progress to acute respiratory failure, her appetite remained good and she was able to be weaned back down to acceptable levels for discharge with nasal cannula. This morning she was doing well on 4 L, she will be sent home on 4 to 6 L nasal cannula. She has pulse oximetry monitoring. A nebulizer and her other medications will continue. She does not need antibiotics or steroids given her course in the hospital. We will see her by telemedicine visit in our offices on Friday. Objective Vital signs: Temp Pulse Resp BP Pulse Ox 98.1 F 68 18 140/67 85 L 10/04/21 04:00 10/04/21 06:16 10/04/21 04:00 10/04/21 04:00 10/04/21 06:16 no acute distress - *Routine HEENT Exam Head: Present: normocephalic Eye: Present: EOMI, PERRL ENT: Present: mucous membranes moist - *Routine Neck Exam Present: supple - *Routine Respiratory Exam Present: CTA bilaterally - *Routine Cardiovascular Exam Present: RRR - *Routine Abdominal Exam Present: soft, normoactive bowel sounds. Absent: tenderness - *Routine Extremities Exam Absent: cyanosis, clubbing, edema - *Routine Skin Exam Present: warm. Absent: rash - Detailed Eye Exam Eyelids: Bilateral normal inspection Results Labs on day of discharge: Labs from last 24 hours 10/04/21 06:39 Sodium 138 Potassium 4.1 Chloride 107 Carbon Dioxide 27 Anion Gap 8.1 BUN 28 H Creatinine 0.60 Estimated Creat Clear 57 Estimated GFR 96 Est GFR ( Amer) 117 Glucose 80 D Calcium 8.3 L Total Bilirubin 0.6 AST 29 ALT 27 Alkaline Phosphatase 50 Total Protein 6.3 Albumin 3.2 L Globulin 3.1 Albumin/Globulin Ratio 1.0 L DS: Diagnosis - Discharge Diagnosis (1) COVID-19 virus infection Status: Acute (2) Respiratory failure with hypoxia Status: Acute (3) Pneumonia due to 2019 novel coronavirus Status: Acute Discharge Plan - Patient Discharge Instructions ACTIVITY: Continue current activity DIET: continue same diet Patient Instructions: Nutrition and Hydration: [employer] Against COVID-19 - Follow up Plan Follow up with: Edward Taylor MD [Staff Physician] - 10/08/21 Disposition: Home, Self-Care Condition at discharge:: Improved Home Medications: Home Medications Medication Instructions Recorded Confirmed Type Albuterol Sulfate [Proventil-HFA 2 puffs IH QIDP PRN 09/24/21 09/25/21 History 90mcg/puff Inh] Ascorbic Acid/Ascorbate Sodium 500 mg PO DAILY 09/24/21 09/24/21 History [Vitamin C 500 mg Tablet Chew] Calc/D3/Magnes/B6/Zn/Cu/Petr 1 each PO DAILY 09/24/21 09/24/21 History [[facility] Cit-D3-Mag 250 mg Cplt] Cyanocobalamin (Vitamin B-12) 2,500 mcg PO DAILY 09/24/21 09/24/21 History
--- NOTE | 2021-10-04 09:22 | SW/DCPLANNER ---
PATIENT IS DISCHARGING HOME TODAY AND WILL NEED HOME 0XYGEN.. I SPOKE WITH HER AND SHE SAID IT IS OK TO GET IT FROM [facility] HERE IN [place] SINCE THEY SERVICE THE AREA SHE LIVES IN... A PORTABLE TANK WILL BE DELIVERED TO HER ROOM PRIOR TO HER DISCHARGING HOME.. PATIENT DID WELL WITH THERAPY AND DID NOT NEED ANY HOME HEALTH SERVICES AT THIS TIME..
== END 2021-10-04 13:30 | disposition home or self-care (01) | DRG 177 ==
LOC: ER 21:31 → 2ND 09-25 00:30
PROVIDERS: Internal Medicine Adolescent Medicine; Admitting Provider Internal Medicine Adolescent Medicine; Emergency Provider Emergency Medicine; Visit Provider Internal Medicine Adolescent Medicine
DX: U07.1 COVID-19 (principal); J12.82 Pneumonia due to coronavirus disease 2019; J96.01 Acute respiratory failure with hypoxia; I10 Essential (primary) hypertension
CPT/HCPCS: 36415; 71045; 71046; 71275; 80053; 82150; 82803; 83690; 83735; 83880; 84145; 84484; 85007; 85014; 85018; 85025; 85048; 85049; 85651; 86140; 87070; 87077; 87186; 87205; 93005; 94640; 94761; 96365; 96375; 97162; 97165; 97530; 97535; 99284; C9803; J0456; Q9967; U0003; U0005

== ENCOUNTER → 2021-11-19 10:15 | Outpatient (CLI) | payer MEDICARE, OTHER, SELFPAY ==
--- NOTE | 2021-11-19 11:00 | PC.NURSE ---
PFT completed without complications. Albuterol 0.083% given via HHN, per written protocol, Pt tolerated tx well.
== END ==
PROVIDERS: PCP Internal Medicine Adolescent Medicine; Visit Provider Internal Medicine Adolescent Medicine
DX: R06.09 Other forms of dyspnea (principal)
CPT/HCPCS: 94060; 94726; 94729

== ENCOUNTER → 2021-11-27 16:24 | Outpatient (CLI) | payer MEDICARE, OTHER, SELFPAY ==
--- NOTE | 2021-11-27 16:31 | XR_ITS ---
PROCEDURE INFORMATION: Exam: XR Right Knee Exam date and time: 11/27/2021 4:33 PM Age: 81 years old Clinical indication: Pain; Knee; Right; Additional info: Primary osteoarthritis of right knee TECHNIQUE: Imaging protocol: XR Right knee. Views: 3 views. COMPARISON: No relevant prior studies available. FINDINGS: Bones/joints: Mild narrowing medial knee compartment. Mild-moderate patellofemoral degenerative changes. Relative sparing lateral knee compartment. Osteopenia. Soft tissues: Soft tissue swelling superficial to the medial knee compartment. Moderate suprapatellar effusion. IMPRESSION: 1. Mild-moderate degenerative osteoarthritis involving the medial knee compartment and patellofemoral articulation. 2. Moderate suprapatellar effusion. 3. Soft tissue swelling medial knee compartment. Ligamentous injury could not be excluded.
== END ==
PROVIDERS: PCP Internal Medicine Adolescent Medicine; Visit Provider Internal Medicine Adolescent Medicine
DX: M17.11 Unilateral primary osteoarthritis, right knee (principal)
CPT/HCPCS: 73562

== ENCOUNTER → 2022-01-17 08:51 | Outpatient (CLI) | payer MEDICARE, OTHER, SELFPAY ==
--- NOTE | 2022-01-17 09:00 | XR_ITS ---
FINAL REPORT CLINICAL HISTORY: BEV KNEE PAIN FINDINGS: LEFT KNEE: Four views of the left knee were obtained. There is no acute fracture or dislocation. There are mild and moderate degenerative changes. Vascular calcifications are noted. IMPRESSION: Stable degenerative changes. Reviewed, Interpreted and Dictated by Augustine Sheppard III, MD Transcribed by Deb Deluca Authenticated by Augustine Sheppard III, MD on 01/17/2022 10:57:44 AM [facility]
--- NOTE | 2022-01-17 09:00 | XR_ITS ---
FINAL REPORT CLINICAL HISTORY: BEV KNEE PAIN COMPARISON: November 27, 2021 FINDINGS: RIGHT KNEE: Four views of the right knee were obtained. There is no acute fracture or dislocation. There are mild degenerative changes. Vascular calcifications are noted. IMPRESSION: No significant change. Reviewed, Interpreted and Dictated by Augustine Sheppard III, MD Transcribed by Deb Deluca Authenticated by Augustine Sheppard III, MD on 01/17/2022 10:57:41 AM [facility]
== END ==
PROVIDERS: PCP Internal Medicine Adolescent Medicine; Visit Provider Orthopaedic Surgery
DX: M25.561 Pain in right knee; M25.562 Pain in left knee
CPT/HCPCS: 73564

== ENCOUNTER → 2022-02-06 10:55 | Outpatient (CLI) | payer MEDICARE, OTHER, SELFPAY ==
[2022-02-06 11:00] LABS: Microscopic, Urine URINE MICROSCOPIC (MICROSCOPIC)
[2022-02-06 11:23] LABS: Basophils # 0.1 K/mm3 (0-0.2); Basophils % 1.3 % (0.1-2.0); Eosinophils % 0.4 % (0.1-12.0); Hematocrit 37.7 % (37.0-47.0); Hemoglobin 12.4 g/dL (12.2-16.2); Lymphocytes # 2.1 K/mm3 (0.7-4.5); Lymphocytes % 29.8 % (10-50); Mean Corpuscular HGB Conc 32.8 g/dL (31.8-35.4); Mean Corpuscular Hemoglobin 28.5 pg (27.0-31.2); Mean Corpuscular Volume 86.9 fl (81-99); Mean Platelet Volume 8.5 fl (7.4-10.4); Monocytes # 0.5 K/mm3 (0.1-1.0); Neutrophils # 4.4 K/mm3 (1.8-7.8); Neutrophils % 61.5 % (37.0-80.0); Platelet Count 236 K/mm3 (142-424); Red Blood Count 4.34 M/mm3 (4.20-5.40); Red Cell Distribution Width 15.8 % (11.5-17.5); White Blood Count 7.1 K/mm3 (4.8-10.8)
[2022-02-06 12:28] LABS: Appearance,Urine SL CLOUDY (Clear); Bilirubin,Urine Negative (Negative); Blood, Urine Negative (Negative); Color,Urine DK YELLOW (Yellow); Glucose,Urine (UA) Negative (Negative); Ketones,Urine TRACE (Negative); Leukocyte Esterase,Urine Negative (Negative); Nitrate,Urine Negative (Negative); Protein,Urine TRACE (Negative); Specific Gravity, Urine >= 1.030 (1.005-1.030)
[2022-02-06 12:44] LABS: Alanine Aminotransferase 21 U/L (12-78); Albumin Level 4.4 g/dl (3.5-5.0); Albumin/Globulin Ratio 1.6 (1.1-1.8); Alkaline Phosphatase 66 U/L (38-126); Anion Gap 11.5 mEq/L (5-15); Aspartate Amino Transferase 32 U/L (14-36); Bilirubin,Total 0.2 mg/dl (0.2-1.3); Blood Urea Nitrogen 17 mg/dl (7-17); Calcium 9.3 mg/dl (8.4-10.2); Carbon Dioxide 29 mmol/L (22.0-30.0); Chloride 104 mmol/L (98-107); Estimated Glomerular Filt Rate 48 ml/min (>60); GFR (African American) 58 ML/MIN (>60); Globulin 2.8 g/dL (1.3-3.2); Glucose 92 mg/dl (74-100); Potassium 4.5 mmoL/L (3.5-5.1); Sodium 140 mmol/L (136-145); Total Protein,Serum 7.2 g/dl (6.3-8.2)
[2022-02-06 13:13] LABS: Bacteria,Urine 1+ /lpf; RBC,Urine Occasional #/hpf (0-3); WBC,Urine Occasional #/hpf (0-3)
== END ==
PROVIDERS: PCP Internal Medicine Adolescent Medicine; Visit Provider Orthopaedic Surgery
DX: S83.206A Unspecified tear of unspecified meniscus, current injury, right knee, initial encounter; M25.561 Pain in right knee
CPT/HCPCS: 36415; 80053; 81001; 85025

== ENCOUNTER → 2022-02-12 09:28 | Outpatient (CLI) | payer MEDICARE, OTHER, SELFPAY | PROVIDERS: PCP Internal Medicine Adolescent Medicine; Visit Provider Orthopaedic Surgery | DX: S83.206A Unspecified tear of unspecified meniscus, current injury, right knee, initial encounter (principal); Z01.812 Encounter for preprocedural laboratory examination; Z20.822 Contact with and (suspected) exposure to COVID-19 | CPT/HCPCS: C9803; U0003; U0005 ==

== ENCOUNTER 2022-02-14 10:23 | Day surgery (SDC) | payer MEDICARE, OTHER, SELFPAY ==
[2022-02-12 12:20] VITALS: BMI 25.2
--- NOTE | 2022-02-12 12:56 | SUR.PREOP ---
PT NOTIFIED TO BE HERE AT 1000 FOR 4077 PROCEDURE
[2022-02-14] VITALS (11 sets, daily range): BP systolic 149–169; BP diastolic 68–87; PULSE 69–93; RESP 16–18; TEMP 36.2–36.7; O2SAT 92–100
--- NOTE | 2022-02-14 10:47 | ECG_ITS ---
APPROVED REPORT Exam: Resting ECG HR:52 bpm ECG Measurements Heart Rate 52 AXES ID 149 P 55 QRSd 83 QRS 31 QT 414 T 18 QTc 395 Conclusion SINUS BRADYCARDIA BORDERLINE ECG UNCONFIRMED REPORT Electronically signed by : Jason Benitez MD 02/14/2022 21:17:15
--- NOTE | 2022-02-14 11:46 | P.PN_ITS ---
[facility] Anesthesia Checklist - Patient Identification Patient Identification: Arm Band - Structural Data Admitted From: Home Planned Operative Procedure/s: Right knee scopr Consent for Planned Operative Procedure(s) Verified: Yes Verified Documents: Surgical Consent - NPO Status Verified Time NPO: 00:00 - Chart Verification Results Verified: CBC, BMP - Additional verifications Anesthesia Reactions: No Hx Blood Transfusions: No Blood Transfusion Reaction: No - Airway Assessment C-Spine Mobility Assessed: Yes TMJ Mobility Assessed: Yes Dentition: Good Dentition - Neurological Assessment Level of Consciousness: Awake, Alert, Appropriate - Anesthesia Plan Anesthesia Risk discussed: Yes ASA Class: III Anesthesia Type: General [facility] History Medical History: Reports:: Cancer (OVARIAN), Hypertension Denies:: Diabetes Mellitus Type 1, Diabetes Mellitus Type 2, Internal Pacemaker, MRSA, Seizures (t-7) *Have you ever received a pneumonia vaccine?: No *Have you received a flu vaccine this season?: No Other Medical History: Denies: Blood Transfusion Reaction Anesthesia experience/problems:: none Laterality Cases: Left: Arthroscopy Knee, Bilateral: Total Hip Replacement Other Surgeries: No: Pacemaker Amputation: No Fractures: No - *Social History Last grade of school completed: High school graduate Smoking Status: Unknown if ever smoked Alcohol Intake: never Substance Use Type: denies use *Occupational Status:: retired Household Members: family *Travel in the last 8 weeks: None Family Hx:: No significant family history
--- NOTE | 2022-02-14 13:45 | HMH.ANESI ---
[facility] Anesthesia Record Part I Intake, IV Amount: 700 Estimated blood loss (mL): 5 Urine output (mL): 0 Blood Products used (#): none Blood Pressure: 166/70 SaO2: 94 Pulse Rate: 93 Respiratory Rate: 16 Temperature: 97.7 F Patient is:: Drowsy Stable to PACU at:: 13:41
--- NOTE | 2022-02-14 23:09 | HMH.OPNOTE ---
Date of procedure: 02/14/22 Pre-op Diagnosis:: 1. Chronic pain, right knee 2. Medial meniscus tear, right knee 3. Osteoarthritis, right knee Post-op Diagnosis:: Same Procedure performed:: 1. Examination of right knee under anesthesia 2. Partial medial meniscectomy, right knee 3. Chondroplasty, right knee Surgeon:: Chavo Sanchez MD Back End Developer(s):: Evelia Valero PA-C REHAB SPEC:: Other (Johnny Sahu) Anesthesia: LMA Estimated blood loss (mL): 2 Clinical Note:: The patient is a 81-year-old female with chronic RIGHT knee pain which is unresponsive to conservative management and evidence of a medial meniscal tear and arthritic changes on imaging. Clinically her symptoms are consistent with the above diagnosis. Resection of the torn medial meniscus, chondroplasty and debridement is indicated to relieve the pain and improve function of the knee. Please refer to my office note for full details. Operative findings:: Examination of the RIGHT knee under anesthesia, showed a stable knee joint. There is a small amount of knee joint effusion. Knee range of motion is from 0-120? of flexion. Operative findings showed widespread grade 3-4 degenerative changes over all 3 compartments. The medial meniscus had a degenerative tear involving the posterior horn. The lateral meniscus was noted to be intact. There was debris and some cartilaginous loose bodies in the knee. The anterior cruciate ligament and posterior cruciate ligaments were intact. Florid synovitis was noted. Operative note:: On the day of the procedure the patient and her nephew were met in the preoperative area and positively identified. A physical examination was performed and documented. The limb was marked and initialed by me. I have again discussed the diagnosis, management options including both nonsurgical and surgical. I have discussed the proposed surgical procedure, risks and benefits and alternatives in detail. The complications discussed include but are not limited to infection, injury to nerves and blood vessels, injury to the ligaments and tendons, knee stiffness, arthrofibrosis, incomplete relief, incomplete functional recovery, DVT, PE, CRPS, complications related to anesthesia including heart attack, stroke and even . I have also discussed about the likely need for further surgery in future. I told her that there were no guarantees with surgery; she could be no better or even worse. We also discussed the postoperative recovery and rehabilitation that might be needed. I believe the patient to be well informed with regard to the proposed surgery. I told her that it would take few months for full recovery of the knee after surgery. She expressed a full understanding and wished to proceed with the planned surgery. Patient understood the risks, agreed to proceed with surgery and no guarantees or assurances were given or implied. Patient was brought to the operating room and placed supine on the operating table. All the bony prominences were appropriately padded. A general anesthesia was administered by the check out cashier. A well-padded tourniquet cuff was placed over the right upper thigh. Examination of the right knee under anesthesia was performed. A small amount of knee effusion was noted. Knee range of motion was 0-120 degrees of flexion. Knee joint is noted to be ligamentously stable. The right knee was then prepped and draped in the usual sterile fashion. A preprocedure timeout was performed as per protocol. Administration of prophylactic IV antibiotics was confirmed with the anesthetic team. The arthroscopic portals were marked on the skin. The limb was exsanguinated with Esmarch bandage, and the tourniquet was inflated to 300 mmHg- see the nursing notes for tourniquet time. I then made an anterolateral arthroscopic portal and introduced the arthroscope and performed the knee examination. I then created an anteromedial portal under direct vision. Arthroscopic findings included widespre
[2022-02-15 07:38] VITALS: BP 157/84; PULSE 73; TEMP 36.2
--- NOTE | 2022-02-15 07:38 | P.PN_ITS ---
[facility] Anesthesia Record Part II Discharge Time: 16:30 Destination: Home PACU nurse assessment reviewed?: Yes Patient Condition:: Good Anesthesia Complications:: None Swallowing reflex intact?: Yes Cyanosis?: No Blood Pressure: 157/84 Pulse Rate: 73 Temperature: 97.1 F Mental Status: Alert & Oriented Pain level:: 3 Nausea and/or vomitting:: None Intake, IV Amount: 0
== END 2022-02-14 15:05 | disposition home or self-care (01) ==
LOC: OR 10:24
PROVIDERS: PCP Internal Medicine Adolescent Medicine; Visit Provider Orthopaedic Surgery
PROC: (CPT 29870; principal; 2022-02-14 11:30)
DX: M23.221 Derangement of posterior horn of medial meniscus due to old tear or injury, right knee (principal); M17.11 Unilateral primary osteoarthritis, right knee; Z79.899 Other long term (current) drug therapy
CPT/HCPCS: 29881; 93005; 96374

== ENCOUNTER → 2022-03-28 10:26 | Outpatient (CLI) | payer MEDICARE, SELFPAY ==
--- NOTE | 2022-03-28 10:36 | XR_ITS ---
FINAL REPORT CLINICAL HISTORY: shoulder pain FINDINGS: RIGHT SHOULDER: 3 views of the right shoulder were obtained. There is no acute fracture or dislocation. There are mild degenerative changes of the acromioclavicular and glenohumeral joints. There is no soft tissue abnormality. IMPRESSION: Mild degenerative change as described. Reviewed, Interpreted and Dictated by Augustine Sheppard III, MD Transcribed by Joann Cardenas Authenticated and . [facility]
== END ==
PROVIDERS: PCP Internal Medicine Adolescent Medicine; Visit Provider Orthopaedic Surgery
DX: M25.511 Pain in right shoulder (principal)
CPT/HCPCS: 73030